=== PATIENT | male | born 1955 | race Caucasian/White ===

== ENCOUNTER 2016-09-15 20:32 | Inpatient (IN) | payer OTHER ==
[~2016-09-15] VITALS: Ht 188 cm; Wt 114.8 kg
[2016-09-15 20:37] VITALS: BP 175/100; PULSE 88; RESP 16; TEMP 98.2; O2SAT 99
[2016-09-15] MEDS ORDERED: CYCL1TAB29 PO (20:41)
[2016-09-15] MEDS ORDERED: MELO-1 PO (20:41)
[2016-09-15] MEDS ORDERED: SODIUM CHLORIDE 0.9% FLUSH 5 ML FLUSH IVF PRN ×2 (21:00→23:45)
[2016-09-15] MEDS ORDERED: MORPHINE SULFATE 4 MG/ML INJ IV ONE (21:00)
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
[2016-09-15 21:26] LABS: AUTOMATED NEUTROPHIL # 13.2 TH/MM3 (1.8-7.7); BASOPHIL # 0.1 TH/MM3 (0-0.2); BASOPHIL % 0.5 % (0.0-2.0); EOSINOPHIL # 0.2 TH/MM3 (0-0.4); HEMATOCRIT 42.6 % (39.0-51.0); LYMPH % 11.1 % (9.0-44.0); LYMPHOCYTE # 1.8 TH/MM3 (1.0-4.8); MEAN CELL VOLUME 87.3 FL (80.0-100.0); MEAN CORPUSCULAR HEMOGLOBIN 30.3 PG (27.0-34.0); MEAN CORPUSCULAR HGB CONC 34.7 % (32.0-36.0); MONO % 5.4 % (0.0-8.0); PLATELET COUNT 231 TH/MM3 (150-450); RED BLOOD COUNT 4.88 MIL/MM3 (4.50-5.90); RED CELL DISTRIBUTION WIDTH 13.4 % (11.6-17.2); WHITE BLOOD COUNT 16.1 TH/MM3 (4.0-11.0)
[2016-09-15 21:27] LABS: HEMO FLAGS AUTO DIFF
[2016-09-15 21:34] LABS: APTT (PATIENT) 25.8 SEC (24.3-30.1); INTERNATIONAL NORMALIZED RATIO 0.9 RATIO; PROTHROMBIN TIME - PATIENT 10.2 SEC (9.8-11.6)
[2016-09-15 21:38] VITALS: BP 171/87; PULSE 99; RESP 16; O2SAT 99
[2016-09-15 21:38] LABS: BICARBONATE 24.1 MEQ/L (21.0-32.0); POTASSIUM 4.3 MEQ/L (3.5-5.1)
[2016-09-15 21:45] LABS: PLATELET ESTIMATE SMEAR NORMAL (NORMAL); PLATELET MORPHOLOGY NORMAL (NORMAL); SCAN/DIFF AUTO DIFF CONFIRMED
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
[2016-09-15] MEDS ORDERED: IOHEXOL 350 MG/ML 10 ML VIAL (for RAD DIAG) IV ONE (21:55)
[2016-09-15 22:06] VITALS: BP 185/90; PULSE 105; RESP 16; O2SAT 100
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
[2016-09-15] MEDS ORDERED: ETOMIDATE 20 MG/10 ML VIAL IV PUSH ONE (22:45)
[2016-09-15] MEDS ORDERED: SODIUM CHLOR 0.9% 1000 ML INJ 1,000 ML IV ONE (22:45)
[2016-09-15 23:18] VITALS: O2SAT 99
[2016-09-15] MEDS ORDERED: SODIUM CHLOR 0.9% 1000 ML INJ 1,000 ML IV SCH (23:45)
[2016-09-15] MEDS ORDERED: ONDANSETRON HCL 4 MG/2 ML VIAL IV PRN (23:45)
--- NOTE | 2016-09-15 23:47 | PD ---
Data Data Last Documented VS Vital Signs Date Time Temp Pulse Resp B/P Pulse Ox O2 Delivery O2 Flow Rate FiO2 09/15/16 23:18 99 09/15/16 23:18 4.00 09/15/16 23:18 Nasal Cannula 09/15/16 22:06 105 16 185/90 09/15/16 20:37 98.2 Orders Basic Metabolic Panel (Bmp) (09/15/16 20:53) Complete Blood Count With Diff (09/15/16 20:53) Prothrombin Time / Inr (Pt) (09/15/16 20:53) Act Partial Throm Time (Ptt) (09/15/16 20:53) Type And Screen (09/15/16 20:53) Urinalysis - C+S If Indicated (09/15/16 20:53) Ct Brain W/O Iv Contrast(Rout) (09/15/16 20:53) Ct Cerv Spine W/O Contrast (09/15/16 20:53) Ct Abd/Pel W Iv Contrast(Rout) (09/15/16 20:53) Ct Thorax/ Chest W Iv Contrast (09/15/16 20:53) Electrocardiogram (09/15/16 20:53) Iv Access Insert/Monitor (09/15/16 20:53) Ecg Monitoring (09/15/16 20:53) Oxygen Administration (09/15/16 20:53) Remove Backboard (09/15/16 20:53) Morphine Inj (Morphine Inj) (09/15/16 21:00) Sodium Chloride 0.9% Flush (Ns Flush) (09/15/16 21:00) Tibia/Fibula (Ap/Lat) (09/15/16 ) Knee, Ltd (1 Or 2vws) (09/15/16 ) Iohexol 350 Inj (Omnipaque 350 Inj) (09/15/16 21:55) Fentanyl Inj (Fentanyl Inj) (09/15/16 22:45) Etomidate Inj (Amidate Inj) (09/15/16 22:45) Sodium Chlor 0.9% 1000 Ml Inj (Ns 1000 M (09/15/16 22:45) ^ Consent (09/15/16 22:33) Knee, Ltd (1 Or 2vws) (09/15/16 23:35) Admit Order (Ed Use Only) (09/15/16 23:36) ^ Circulation ADALGISA.Q1H (09/15/16 23:36) Vital Signs (Adult) Q4H (09/15/16 23:36) Diet Npo (09/16/16 Breakfast) Activity Bed Rest (09/15/16 23:36) ^ Saline Lock (09/15/16 23:36) Resp Oxygen Orlando C Titrat 1-4 L (09/15/16 ) ^ Notify Dr: Other (09/15/16 23:36) Ondansetron Inj (Zofran Inj) (09/15/16 23:45) Sodium Chloride 0.9% Flush (Ns Flush) (09/16/16 09:00) Sodium Chloride 0.9% Flush (Ns Flush) (09/15/16 23:45) Consult Orthopedic (09/15/16 23:36) Sodium Chlor 0.9% 1000 Ml Inj (Ns 1000 M (09/15/16 23:45) Morphine Inj (Morphine Inj) (09/15/16 23:45) Fentanyl Inj (Fentanyl Inj) (09/15/16 23:45) Labs Laboratory Tests Test 09/15/16 21:05 White Blood Count 16.1 TH/MM3 Red Blood Count 4.88 MIL/MM3 Hemoglobin 14.8 GM/DL Hematocrit 42.6 % Mean Corpuscular Volume 87.3 FL Mean Corpuscular Hemoglobin 30.3 PG Mean Corpuscular Hemoglobin 34.7 % Concent Red Cell Distribution Width 13.4 % Platelet Count 231 TH/MM3 Mean Platelet Volume 8.6 FL Neutrophils (%) (Auto) 82.0 % Lymphocytes (%) (Auto) 11.1 % Monocytes (%) (Auto) 5.4 % Eosinophils (%) (Auto) 1.0 % Basophils (%) (Auto) 0.5 % Neutrophils # (Auto) 13.2 TH/MM3 Lymphocytes # (Auto) 1.8 TH/MM3 Monocytes # (Auto) 0.9 TH/MM3 Eosinophils # (Auto) 0.2 TH/MM3 Basophils # (Auto) 0.1 TH/MM3 CBC Comment AUTO DIFF Differential Comment AUTO DIFF CONFIRMED Platelet Estimate NORMAL Platelet Morphology Comment NORMAL Red Cell Morphology Comment NORMAL Prothrombin Time 10.2 SEC Prothromb Time International 0.9 RATIO Ratio Activated Partial 25.8 SEC Thromboplast Time Sodium Level 137 MEQ/L Potassium Level 4.3 MEQ/L Chloride Level 104 MEQ/L Carbon Dioxide Level 24.1 MEQ/L Anion Gap 9 MEQ/L Blood Urea Nitrogen 15 MG/DL Creatinine 1.00 MG/DL Estimat Glomerular Filtration 76 ML/MIN Rate Random Glucose 104 MG/DL Calcium Level 8.8 MG/DL Blood Type O POSITIVE Antibody Screen NEGATIVE Blood Bank Comment [facility] Supervised Visit with KAMILA: No Narrative Course Last Impressions Head CT 09/15/162052 Signed Impressions: Service Date/Time: Thursday, September 15, 2016 21:49 - CONCLUSION: Normal examination for a patient of this age. Juan Whitney MD Chest CT 09/15/162052 Signed Impressions: Service Date/Time: Thursday, September 15, 2016 21:53 - CONCLUSION: 1. Multiple left-sided posterior and anterior lateral lower rib fractures with small left hemothorax. No pneumothorax. 2. Mild paraseptal and centrilobular emphysema. No mediastinal hematoma or evidence for traumatic aortic injury. 3. Mild to moderate coronary calcifications. Juan Whitney MD Cervical Spine CT 09/15/162052 Signed Impressions: Service Date/Time: Thursday, September 15, 2016 21:49 - CONCLUSION: 1. Mild degenerative disc disease and facet arthropathy. No acute bony abnormalities. Juan Whitney MD Abdomen/Pelvis CT 09/15/162052 Signed Impressions: Service Date/Time: Thursday, September 15, 2016 21:53 - CONCLUSION: 1. Multiple left lower rib fractures both posteriorly and anterolaterally with a small left hemothorax. There is no pneumothorax. No solid visceral injuries identified within the abdomen or pelvis. No free fluid or free air. Juan Whitney MD Tibia/Fibula X-Ray 09/15/16 0000 Signed Impressions: Service Date/Time: Thursday, September 15, 2016 21:31 - CONCLUSION: 1. Severely comminuted proximal tibial fracture. Fibular shaft fracture also present. Juan Whitney MD Knee X-Ray 09/15/16 0000 Signed Impressions: Service Date/Time: Thursday, September 15, 2016 21:27 - CONCLUSION: 1. Severely comminuted and displaced proximal tibial fracture. Distal femur appears intact. Proximal fibular shaft fracture as well. Juan Whitney MD CBC & BMP Diagram 09/15/16 21:05 Procedures Procedure Narrative After the risks and benefits were discussed the following procedure was performed: MODERATE SEDATION: The patient was placed on a quality assurance monitor and pulse oximetry. An ambu bag and suction was immediately available at bedside. The patient was monitored by the nurse and respiratory therapy. Oxygen saturation, heart rate and blood pressure were monitored. Procedural sedation was acheived using 100 g of fentanyl and 10 mg of etomidate. The patient was observed until awake and alert. Procedural Sedation time in attendance was 15 minutes. While the patient was sedated, the fracture was reduced by myself and the orthodontist small business owner. The leg was then splinted. He had good pedal pulses following the procedure. Post reduction x-ray is pending. Physician Communication Physician Communication Case discussed with Dr. Zimmerman who asked that I try to reduce the fracture. Case was then discussed with Dr. Beach who will admit the patient. Diagnosis Primary Impression: Closed left tibial fracture Qualified Code: S82.102A - Closed fracture of proximal end of left tibia, unspecified fracture morphology, initial encounter Additional Impressions: Left rib fracture Qualified Code: S22.42XA - Closed fracture of multiple ribs of left side, initial encounter Hemothorax on left Admitting Information Admitting Physician Requests: Admit Condition: Stable Mira Khan MD Sep 15, 2016 23:47
[2016-09-16] VITALS (8 sets, daily range): BP systolic 128–168; BP diastolic 71–96; PULSE 87–94; RESP 17–18; TEMP 95.1–98.4; O2SAT 91–97
--- NOTE | 2016-09-16 00:01 | RADRPT ---
EXAM DATE/TIME: 09/15/2016 23:31 [facility] COMPARISON: KNEE LEFT LTD (1 OR 2VWS), September 15, 2016, 21:27. INDICATIONS : Post reduction left knee. MEDICAL HISTORY : None. SURGICAL HISTORY : None. ENCOUNTER: Subsequent ACUITY: 1 day PAIN SCORE: 6/10 LOCATION: Left knee. FINDINGS: The alignment is anatomic. Anterior fracture of the tibial plateau is present with intra-articular di stention. Transverse fracture the proximal fibula is present. A lipohemarthrosis is present. CONCLUSION: 1. Restorationist of anatomic alignment. London Dixon MD on September 15, 2016 at 23:59 Board Certified Radiologist. This report was verified electronically.
[2016-09-16] MEDS: MORPHINE SULFATE 4 MG/ML INJ IV PUSH PRN ×3 (01:28→08:10)
[2016-09-16 05:04] LABS: BLOOD, URINE NEG (NEG); COMMENT (UR) CULT NOT INDICATED; CULTURE IF INDICATED CULT NOT INDICATED; GLUCOSE,URINE NEG (NEG); KETONE, URINE NEG (NEG); MUCUS URINE FEW /lpf (OCC); NITRITE,URINE NEG (NEG); PH, URINE 5.5 (5.0-8.5); URINE COLOR LIGHT-YELLOW (YELLW/STRAW)
[2016-09-16] MEDS ORDERED: SODIUM CHLORIDE 0.9% FLUSH 5 ML FLUSH IVF PRN ×2 (07:15→10:30)
[2016-09-16] MEDS ORDERED: ENALAPRILAT 1.25 MG/ML VIAL IV PRN (07:15)
[2016-09-16] MEDS ORDERED: ACETAMINOPHEN 325 MG TAB PO PRN (07:15)
[2016-09-16] MEDS ORDERED: ONDANSETRON HCL 4 MG/2 ML VIAL IV PRN (07:15)
[2016-09-16] MEDS: SODIUM CHLORIDE 0.9% FLUSH 5 ML FLUSH IVF SCH ×3 (08:12→19:24)
[2016-09-16] MEDS: MELOXICAM 15 MG TAB PO SCH (08:12)
[2016-09-16] MEDS: CYCLOBENZAPRINE HCL 10 MG TAB PO SCH ×3 (08:12→17:00)
[2016-09-16] MEDS: SODIUM CHLOR 0.9% 1000 ML INJ 1,000 ML IV SCH ×2 (08:18→11:23)
[2016-09-16] MEDS ORDERED: DOCUSATE SODIUM 100 MG CAP PO SCH (09:00)
[2016-09-16] MEDS ORDERED: VANCOMYCIN HCL 1000 MG VIAL ONE (09:26)
[2016-09-16] MEDS ORDERED: ceFAZolin 2 GM PREMIX 50 ML ONE (09:26)
[2016-09-16] MEDS ORDERED: DEXT 5%-NACL 0.45% 1000 ML INJ 1,000 ML IV SCH (10:19)
[2016-09-16] MEDS ORDERED: MIDAZOLAM HCL 2 MG/2 ML VIAL ONE (10:22)
[2016-09-16] MEDS ORDERED: fentaNYL CITRATE 250 MCG/5 ML AMP ONE (10:23)
[2016-09-16] MEDS ORDERED: *morphine SULFATE 8 MG/ML PERIprocedure ONLY ONE ×2 (10:26→10:33)
[2016-09-16] MEDS ORDERED: MISCELLANEOUS PHARMACY INFORMATION XX ONE (10:30)
[2016-09-16] MEDS ORDERED: ONDANSETRON HCL 4 MG/2 ML VIAL IVP PRN (10:30)
[2016-09-16] MEDS ORDERED: MISCELLANEOUS NURSING INFORMATION XX PRN (10:30)
[2016-09-16] MEDS ORDERED: diphenhydrAMINE HCL 25 MG CAP PO PRN (10:30)
[2016-09-16] MEDS ORDERED: NALOXONE HCL 0.4 MG/ML AMP IV PRN (10:30)
[2016-09-16] MEDS ORDERED: MORPHINE SULFATE 4 MG/ML INJ IV PUSH PRN (10:30)
[2016-09-16] MEDS ORDERED: MAGNESIUM HYDROXIDE SUSP 30 ML CUP PO PRN (10:30)
[2016-09-16] MEDS ORDERED: Post-op Orders (for Pharmacy) MISC XX ONE (10:30)
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
--- NOTE | 2016-09-16 10:39 | RADRPT ---
EXAM DATE/TIME: 09/16/2016 10:01 [facility] COMPARISON: KNEE LEFT LTD (1 OR 2VWS), September 15, 2016, 23:31. INDICATIONS : Surgical repair. MEDICAL HISTORY : None. SURGICAL HISTORY : None. ENCOUNTER: Initial ACUITY: 1 day PAIN SCORE: Non-responsive. LOCATION: Left Proximal tibia. FINDINGS: Single intraoperative spot image of the left knee indicating comminuted fracture of the proximal tibi a. CONCLUSION: Comminuted proximal tibia fracture. Nikita Baca MD on September 16, 2016 at 10:37 Board Certified Radiologist. This report was verified electronically.
[2016-09-16] MEDS ORDERED: *MEPERIDINE 25 MG INJ VIAL PERIprocedural Use ONLY ONE (10:40)
[2016-09-16] MEDS ORDERED: DO NOT ADM ANY ANTICOAGULANT DRUGS XX PRN (10:45)
[2016-09-16] MEDS: MORPHINE SULFATE 30 MG/30 ML PCA IV SCH ×2 (10:58→19:30)
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
[2016-09-16] MEDS ORDERED: ePHEDrine/NS 25 MG/5 ML SYR IV ONE (12:00)
[2016-09-16] MEDS ORDERED: PHENYLEPH/NS 1000 MCG/10 ML SYR IV ONE (12:00)
[2016-09-16] MEDS ORDERED: PROPOFOL 200 MG/20 ML AMP IV ONE (12:00)
[2016-09-16] MEDS ORDERED: ONDANSETRON HCL 4 MG/2 ML VIAL IV PUSH ONE (12:00)
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
[2016-09-16] MEDS ORDERED: RESP: ALBUTEROL 2.5 MG/IPRATROPIUM 0.5 MG NEB (PRN) NEB (13:15)
[2016-09-16] MEDS ORDERED: CALCIUM CARBONATE 500 MG CHEWABLE TAB CHEW PRN (13:30)
[2016-09-16] MEDS: PCA - TOTAL MG MORPHINE DELIVERED PER SHIFT SCH ×2 (13:45→19:24)
[2016-09-16] MEDS: PANTOPRAZOLE SOD 40 MG DELAYED RELEASE TAB PO SCH (14:28)
--- NOTE | 2016-09-16 15:10 | EKG ---
Date Performed: 09/15/2016 Time Performed: 21:44:23 PTAGE: 61 years EKG: SINUS TACHYCARDIA NONSPECIFIC ST & T-WAVE ABNORMALITY ABNORMAL ECG NO PREVIOUS TRACING DOCTOR: Luis Alberto Enriquez Interpretating Date/Time 09/16/2016 15:09:42
[2016-09-16] MEDS: DOCUSATE SODIUM 50 MG/SENNA 8.6 MG TAB PO SCH (19:23)
[2016-09-16] MEDS: MAGNESIUM HYDROXIDE SUSP 30 ML CUP PO SCH (19:24)
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
[2016-09-17] VITALS (8 sets, daily range): BP systolic 106–152; BP diastolic 68–85; PULSE 96–105; RESP 16–18; TEMP 96.2–98.2; O2SAT 91–94
[2016-09-17] MEDS ORDERED: LACTATED RINGER'S 1000 ML IV SCH (01:00)
[2016-09-17] MEDS ORDERED: SODIUM CHLORID 0.9% 500 ML IV SCH (01:00)
[2016-09-17] MEDS ORDERED: INSULIN HUMAN REGULAR 1,000 UNITS/10 ML VIAL SQ PRN (04:45)
[2016-09-17] MEDS ORDERED: METOPROLOL TARTRATE 25 MG TAB PO PRN (04:45)
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
[2016-09-17 07:15] LABS: AUTOMATED NEUTROPHIL # 8.3 TH/MM3 (1.8-7.7); BASOPHIL % 0.2 % (0.0-2.0); EOSINOPHIL # 0.1 TH/MM3 (0-0.4); EOSINOPHIL % 0.7 % (0.0-4.0); HEMATOCRIT 34.6 % (39.0-51.0); HEMO FLAGS DIFF FINAL; LYMPH % 15.2 % (9.0-44.0); LYMPHOCYTE # 1.7 TH/MM3 (1.0-4.8); MEAN CELL VOLUME 88.3 FL (80.0-100.0); MEAN CORPUSCULAR HEMOGLOBIN 29.8 PG (27.0-34.0); MEAN CORPUSCULAR HGB CONC 33.7 % (32.0-36.0); MONO % 9.5 % (0.0-8.0); NEUT % 74.4 % (16.0-70.0); PLATELET COUNT 189 TH/MM3 (150-450); RED BLOOD COUNT 3.92 MIL/MM3 (4.50-5.90); RED CELL DISTRIBUTION WIDTH 13.4 % (11.6-17.2); WHITE BLOOD COUNT 11.1 TH/MM3 (4.0-11.0)
[2016-09-17 07:43] LABS: ALT (GPT) 32 U/L (12-78); ANION GAP 6 MEQ/L (5-15); AST (GOT) 27 U/L (15-37); BICARBONATE 30.5 MEQ/L (21.0-32.0); BLOOD UREA NITROGEN 11 MG/DL (7-18); CHLORIDE 101 MEQ/L (98-107); GLOMERULAR FILTRATION RATE 98 ML/MIN (>89); POTASSIUM 4.4 MEQ/L (3.5-5.1); SODIUM (NA) 137 MEQ/L (136-145)
[2016-09-17 07:45] LABS: ALKALINE PHOSPHATASE 59 U/L (45-117); TOTAL BILIRUBIN ADULT 0.3 MG/DL (0.2-1.0)
[2016-09-17] MEDS: MELOXICAM 15 MG TAB PO SCH (08:30)
[2016-09-17] MEDS: MULTIVITAMINS/MINERALS THERAPEUTIC TAB PO SCH (08:30)
[2016-09-17] MEDS: CYCLOBENZAPRINE HCL 10 MG TAB PO SCH ×3 (08:30→17:16)
[2016-09-17] MEDS: PANTOPRAZOLE SOD 40 MG DELAYED RELEASE TAB PO SCH (08:30)
[2016-09-17] MEDS: ENOXAPARIN SODIUM 40 MG/0.4 ML SYRINGE SQ SCH (08:30)
[2016-09-17] MEDS: SODIUM CHLORIDE 0.9% FLUSH 5 ML FLUSH IVF SCH ×3 (08:30→20:06)
[2016-09-17] MEDS ORDERED: LACTULOSE SYRUP 20 GM/30 ML CUP PO ONE (08:30)
[2016-09-17] MEDS: DOCUSATE SODIUM 50 MG/SENNA 8.6 MG TAB PO SCH ×2 (08:30→20:04)
[2016-09-17] MEDS: KETOROLAC TROMETHAMINE 60 MG/2 ML (IM) VIAL IM SCH ×3 (08:35→22:00)
[2016-09-17] MEDS: SODIUM CHLOR 0.9% 1000 ML INJ 1,000 ML IV SCH (08:36)
--- NOTE | 2016-09-17 09:16 | RADRPT ---
EXAM DATE/TIME: 09/17/2016 08:58 [facility] COMPARISON: CT THORAX W CONTRAST, September 15, 2016, 21:53. INDICATIONS : Follow-up hemothorax. MEDICAL HISTORY : Rib fractures. SURGICAL HISTORY : Tonsillectomy. ENCOUNTER: Initial ACUITY: 3 days PAIN SCORE: 10/10 LOCATION: Bilateral chest FINDINGS: There is persistent left basilar density retrocardiac which may represent in part consolidation and p osterior lateral associated pleural effusion. There is no definite evidence of pneumothorax. CONCLUSION: No evidence of pneumothorax. Left basilar density in part posterior fusion pneumothorax and possibly some mild lower lobe posterior basilar consolidation Brandon Fermin MD on September 17, 2016 at 9:12 Board Certified Radiologist. This report was verified electronically.
--- NOTE | 2016-09-17 09:41 | RADRPT ---
EXAM DATE/TIME: 09/17/2016 08:52 [facility] COMPARISON: No previous studies available for comparison. INDICATIONS : Evaluate fracture RADIATION DOSE: 7.31 CTDIvol (mGy) MEDICAL HISTORY: None SURGICAL HISTORY: External fixator left tibia ENCOUNTER: Initial ACUITY: 3 days PAIN SCALE: 6/10 LOCATION: Left tibia TECHNIQUE: Volumetric scanning of the knee was performed. Using automated exposure control and adjustment of th e mA and/or kV according to patient size, radiation dose was kept as low as reasonably achievable to obtain optimal diagnostic quality images. FINDINGS: There is a severely comminuted fracture of the lateral plateau that involves both the medial and late ral tibial spine. There is also a horizontal component across the proximal tibial metaphysis. The fibular head is intact; however, there is a fracture of the proximal fibular metaphysis. Femoral condyle is intact. Large joint effusion is evident. Patella is intact. CONCLUSION: 1. Severely comminuted fracture of the tibial plateau involving predominantly the lateral plateau. 2. 3D reconstructions are pending. Kleber Alfaro MD FACR on September 17, 2016 at 9:14 Board Certified Radiologist. This report was verified electronically.
[2016-09-17] MEDS: LIDOCAINE HCL 5% PATCH TD SCH (11:18)
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
--- NOTE | 2016-09-17 13:19 | RADRPT ---
EXAM DATE/TIME: 09/17/2016 08:52 [facility] COMPARISON: No previous studies available for comparison. INDICATIONS : Evaluate fracture MEDICAL HISTORY: None SURGICAL HISTORY: Left tibia ENCOUNTER: Initial ACUITY: 3 days PAIN SCALE: 1/10 LOCATION: Left tibia FINDINGS/ CONCLUSION: 3D reconstructions were obtained to further evaluate the severely comminuted fracture of the proximal tibia and lateral plateau. Kleber Alfaro MD FACR on September 17, 2016 at 12:46 Board Certified Radiologist. This report was verified electronically.
[2016-09-17] MEDS: ACETAMINOPHEN/HYDROcodone 325 MG/7.5 MG TAB PO PRN (17:14)
[2016-09-17] MEDS: MAGNESIUM HYDROXIDE SUSP 30 ML CUP PO SCH (20:04)
[2016-09-17] MEDS ORDERED: REMOVE OLD PATCH T-DERMAL SCH (21:00)
[2016-09-18] MEDS: ACETAMINOPHEN/HYDROcodone 325 MG/7.5 MG TAB PO PRN ×3 (06:00→19:05)
--- NOTE | 2016-09-18 06:21 | PD.ORT.PN ---
Subjective Subjective Remarks Patient has comminuted left tibial plateau fracture. An external fixation. Complains of left sided rib pain Objective Vitals Vital Signs Date Time Temp Pulse Resp B/P Pulse Ox O2 Delivery O2 Flow Rate FiO2 09/17/16 23:30 98.2 101 18 137/73 92 09/17/16 20:15 96.6 99 18 126/77 94 09/17/16 19:02 Nasal Cannula 2.00 09/17/16 17:30 97.4 101 16 152/76 91 09/17/16 13:33 94 Nasal Cannula 2.00 09/17/16 12:05 97.5 96 16 106/68 91 09/17/16 08:40 96.7 99 16 140/77 91 09/17/16 07:11 Nasal Cannula 2.00 I/O 09/17/16 09/17/16 09/17/16 09/18/16 09/18/16 09/18/16 07:00 15:00 23:00 07:00 15:00 23:00 Intake Total 480 ml 1740 ml 1356 ml 666 ml Output Total 0 ml 1500 ml 800 ml 0 ml Balance 480 ml 240 ml 556 ml 666 ml Intake Oral 480 ml 960 ml 720 ml 240 ml IV Total 780 ml 636 ml 426 ml Output Urine Total 0 ml 1500 ml 800 ml 0 ml Bladder Scan Volume Amount 986 ml # Bowel Movements 0 0 0 Result Diagram: 09/17/16 0617 09/17/16 0617 Imaging Last 24 hours Impressions Chest X-Ray 09/17/16 0800 Signed Impressions: Service Date/Time: Saturday, September 17, 2016 08:58 - CONCLUSION: No evidence of pneumothorax. Left basilar density in part posterior fusion pneumothorax and possibly some mild lower lobe posterior basilar consolidation Brandon Fermin MD Objective Remarks LLE: +knee spanning exfix. pin sites clean. moderate bloody drainage. NVI distally with good dorsiflexion. Positive swelling. Compartments soft Assessment & Plan Assessment and Plan 1) Left Tibial Plateau Fx s/p exfix -NWB -elevate -ice -Toradol 30mg Q8hrs x 6 doses -CT scan left knee today -will evaluate day to day for swelling to decrease Plan on surgery when swelling is improved Abdiaziz Hager MD Sep 18, 2016 06:21
[2016-09-18 08:02] VITALS: BP 147/87; PULSE 90; RESP 16; TEMP 97.1; O2SAT 94
[2016-09-18] MEDS: LIDOCAINE HCL 5% PATCH TD SCH (09:00)
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
[2016-09-18] MEDS ORDERED: TAMSULOSIN HCL 0.4 MG CAP PO ONE (10:00)
[2016-09-18 10:02] VITALS: BP 128/59; PULSE 90; RESP 16; TEMP 95.4; O2SAT 94
[2016-09-18] MEDS: ENOXAPARIN SODIUM 40 MG/0.4 ML SYRINGE SQ SCH (10:10)
[2016-09-18] MEDS: DOCUSATE SODIUM 50 MG/SENNA 8.6 MG TAB PO SCH (10:11)
[2016-09-18] MEDS: CYCLOBENZAPRINE HCL 10 MG TAB PO SCH ×3 (10:11→18:09)
[2016-09-18] MEDS: MULTIVITAMINS/MINERALS THERAPEUTIC TAB PO SCH (10:11)
[2016-09-18] MEDS: PANTOPRAZOLE SOD 40 MG DELAYED RELEASE TAB PO SCH (10:12)
[2016-09-18] MEDS: SODIUM CHLORIDE 0.9% FLUSH 5 ML FLUSH IVF SCH ×2 (10:12→21:33)
[2016-09-18] MEDS: MORPHINE SULFATE 4 MG/ML INJ IV PUSH PRN (10:13)
[2016-09-18] MEDS ORDERED: MAGNESIUM CITRATE SOLN 300 ML BTL PO ONE (11:15)
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
[2016-09-18 16:19] VITALS: BP 137/74; PULSE 91; RESP 17; TEMP 97.1; O2SAT 94
[2016-09-18] MEDS: KETOROLAC TROMETHAMINE 30 MG/ML (IVP) VIAL IV PUSH SCH ×2 (17:58→21:35)
[2016-09-18 21:12] VITALS: BP 137/71; PULSE 100; RESP 16; TEMP 97.2; O2SAT 93
[2016-09-18] MEDS: FAMOTIDINE 20 MG TAB PO SCH (21:34)
[2016-09-19] VITALS (7 sets, daily range): BP systolic 142–163; BP diastolic 73–83; PULSE 92–98; RESP 12–18; TEMP 97.1–97.3; O2SAT 90–98
[2016-09-19] MEDS: MAGNESIUM HYDROXIDE SUSP 30 ML CUP PO SCH ×2 (00:22→21:00)
[2016-09-19] MEDS: DOCUSATE SODIUM 50 MG/SENNA 8.6 MG TAB PO SCH ×3 (00:22→21:00)
[2016-09-19] MEDS: ACETAMINOPHEN/HYDROcodone 325 MG/7.5 MG TAB PO PRN ×5 (00:23→17:46)
[2016-09-19] MEDS: KETOROLAC TROMETHAMINE 30 MG/ML (IVP) VIAL IV PUSH SCH ×2 (05:29→12:59)
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
[2016-09-19] MEDS ORDERED: KETOROLAC TROMETHAMINE 60 MG/2 ML (IM) VIAL IM SCH (06:30)
--- NOTE | 2016-09-19 07:39 | RADRPT ---
EXAM DATE/TIME: 09/19/2016 06:37 [place] COMPARISON: No previous studies available for comparison. INDICATIONS : Hemothorax. MEDICAL HISTORY : Rib fractures. SURGICAL HISTORY : Tonsillectomy. ENCOUNTER: Subsequent ACUITY: 4 - 6 days PAIN SCORE: 5/10 LOCATION: Left chest FINDINGS: A single view of the chest demonstrates small left pleural effusion. Left basilar density. Minimal ri ght upper lobe density. Osseous structures are intact. CONCLUSION: 1. Small left pleural effusion left basilar density. 2. Interval development of density in the right upper lobe Kam Helton MD on September 19, 2016 at 7:37 Board Certified Radiologist. This report was verified electronically.
[2016-09-19] MEDS: SODIUM CHLORIDE 0.9% FLUSH 5 ML FLUSH IVF SCH ×2 (09:00→10:33)
[2016-09-19] MEDS: MORPHINE SULFATE 4 MG/ML INJ IV PUSH PRN ×2 (10:28→20:40)
[2016-09-19] MEDS: FAMOTIDINE 20 MG TAB PO SCH ×2 (10:31→21:00)
[2016-09-19] MEDS: CYCLOBENZAPRINE HCL 10 MG TAB PO SCH ×3 (10:31→17:46)
[2016-09-19] MEDS: ENOXAPARIN SODIUM 40 MG/0.4 ML SYRINGE SQ SCH (10:31)
[2016-09-19] MEDS: MULTIVITAMINS/MINERALS THERAPEUTIC TAB PO SCH (10:31)
[2016-09-19] MEDS: TAMSULOSIN HCL 0.4 MG CAP PO SCH (10:31)
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
[2016-09-20 00:40] VITALS: BP 119/78; PULSE 100; RESP 17; TEMP 96.4; O2SAT 96
[2016-09-20] MEDS: ACETAMINOPHEN/HYDROcodone 325 MG/7.5 MG TAB PO PRN ×4 (01:32→21:33)
[2016-09-20] MEDS: SODIUM CHLORIDE 0.9% FLUSH 5 ML FLUSH IVF SCH ×2 (01:33→21:30)
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
[2016-09-20 08:00] VITALS: BP 138/82; PULSE 113; RESP 18; TEMP 95.7; O2SAT 92
[2016-09-20] MEDS: MULTIVITAMINS/MINERALS THERAPEUTIC TAB PO SCH (08:29)
[2016-09-20] MEDS: FAMOTIDINE 20 MG TAB PO SCH ×2 (08:30→21:33)
[2016-09-20] MEDS: TAMSULOSIN HCL 0.4 MG CAP PO SCH (08:30)
[2016-09-20] MEDS: CYCLOBENZAPRINE HCL 10 MG TAB PO SCH ×3 (08:32→18:09)
[2016-09-20] MEDS: MELOXICAM 15 MG TAB PO SCH (08:37)
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
[2016-09-20 12:00] VITALS: BP 157/96; PULSE 105; RESP 16; TEMP 95.7; O2SAT 96
[2016-09-20 16:00] VITALS: BP 137/81; PULSE 107; RESP 20; TEMP 96.5; O2SAT 93
[2016-09-20 20:35] VITALS: BP 162/76; PULSE 114; RESP 17; TEMP 96.1; O2SAT 93
[2016-09-20] MEDS: MAGNESIUM HYDROXIDE SUSP 30 ML CUP PO SCH (21:00)
[2016-09-20] MEDS: DOCUSATE SODIUM 50 MG/SENNA 8.6 MG TAB PO SCH (21:00)
[2016-09-21] VITALS (8 sets, daily range): BP systolic 117–154; BP diastolic 67–84; PULSE 92–109; RESP 16–20; TEMP 96–98.1; O2SAT 93–99
[2016-09-21] MEDS: ACETAMINOPHEN/HYDROcodone 325 MG/7.5 MG TAB PO PRN ×4 (03:50→23:32)
--- NOTE | 2016-09-21 06:43 | PD.ORT.PN ---
Subjective Subjective Remarks Patient has comminuted left tibial plateau fracture. In external fixation. He is keeping left leg elevated and iced Objective Vitals Vital Signs Date Time Temp Pulse Resp B/P Pulse Ox O2 Delivery O2 Flow Rate FiO2 09/21/16 03:50 96.4 106 17 130/83 96 09/21/16 00:00 98.1 109 18 117/76 94 09/20/16 20:35 96.1 114 17 162/76 93 09/20/16 20:00 93 Nasal Cannula 2.00 09/20/16 16:00 96.5 107 20 137/81 93 09/20/16 12:00 95.7 105 16 157/96 96 09/20/16 08:00 95.7 113 18 138/82 92 I/O 09/20/16 09/20/16 09/20/16 09/21/16 09/21/16 09/21/16 07:00 15:00 23:00 07:00 15:00 23:00 Intake Total 240 ml 240 ml 480 ml Output Total 650 ml 2000 ml 1350 ml Balance -410 ml -1760 ml -870 ml Intake Oral 240 ml 240 ml 480 ml Output Urine Total 650 ml 2000 ml 1350 ml # Bowel Movements 0 0 0 Result Diagram: 09/17/1661609/17/16616 Imaging Last 24 hours Impressions Chest X-Ray 09/17/16 0800 Signed Impressions: Service Date/Time: Saturday, September 17, 2016 08:58 - CONCLUSION: No evidence of pneumothorax. Left basilar density in part posterior fusion pneumothorax and possibly some mild lower lobe posterior basilar consolidation Brandon Fermin MD Objective Remarks LLE: +knee spanning exfix. pin sites clean. Minimal drainage. NVI distally with good dorsiflexion. Positive 2+ swelling. Compartments soft Assessment & Plan Assessment and Plan 1) Left Tibial Plateau Fx s/p exfix -NWB -elevate -ice -will continue to ice and elevate -npo after MN on Saturday -hold lovenox after Saturday dose -will eval for surgery for Saturday -Will switch mattresses to help prevent decubitus ulcers. Abdiaziz Hager MD Sep 21, 2016 06:43
[2016-09-21] MEDS: FAMOTIDINE 20 MG TAB PO SCH ×2 (08:31→20:25)
[2016-09-21] MEDS: TAMSULOSIN HCL 0.4 MG CAP PO SCH (08:31)
[2016-09-21] MEDS: CYCLOBENZAPRINE HCL 10 MG TAB PO SCH ×3 (08:31→17:25)
[2016-09-21] MEDS: MELOXICAM 15 MG TAB PO SCH (08:31)
[2016-09-21] MEDS: MULTIVITAMINS/MINERALS THERAPEUTIC TAB PO SCH (08:31)
[2016-09-21] MEDS: SODIUM CHLORIDE 0.9% FLUSH 5 ML FLUSH IVF SCH ×2 (08:32→20:25)
[2016-09-21] MEDS: ENOXAPARIN SODIUM 40 MG/0.4 ML SYRINGE SQ SCH (08:32)
[2016-09-21] MEDS: DOCUSATE SODIUM 50 MG/SENNA 8.6 MG TAB PO SCH ×2 (08:33→20:26)
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
[2016-09-21] MEDS: MAGNESIUM HYDROXIDE SUSP 30 ML CUP PO SCH (20:26)
[2016-09-22] MEDS: ACETAMINOPHEN/HYDROcodone 325 MG/7.5 MG TAB PO PRN ×3 (05:15→15:38)
[2016-09-22 06:05] LABS: ALT (GPT) 46 U/L (12-78); ANION GAP 9 MEQ/L (5-15); AST (GOT) 36 U/L (15-37); BICARBONATE 31.2 MEQ/L (21.0-32.0); BLOOD UREA NITROGEN 12 MG/DL (7-18); CHLORIDE 96 MEQ/L (98-107); GLOMERULAR FILTRATION RATE 112 ML/MIN (>89); POTASSIUM 4.6 MEQ/L (3.5-5.1); SODIUM (NA) 136 MEQ/L (136-145)
[2016-09-22 06:07] LABS: ALKALINE PHOSPHATASE 94 U/L (45-117); TOTAL BILIRUBIN ADULT 0.3 MG/DL (0.2-1.0)
[2016-09-22 06:11] LABS: BASOPHIL % 0.2 % (0.0-2.0); EOSINOPHIL # 0.4 TH/MM3 (0-0.4); EOSINOPHIL % 3.9 % (0.0-4.0); HEMATOCRIT 31.8 % (39.0-51.0); HEMO FLAGS DIFF FINAL; LYMPH % 10.1 % (9.0-44.0); MEAN CELL VOLUME 86.8 FL (80.0-100.0); MEAN CORPUSCULAR HEMOGLOBIN 29.5 PG (27.0-34.0); MONO % 12.2 % (0.0-8.0); NEUT % 73.6 % (16.0-70.0); PLATELET COUNT 261 TH/MM3 (150-450); RED BLOOD COUNT 3.66 MIL/MM3 (4.50-5.90); RED CELL DISTRIBUTION WIDTH 13.1 % (11.6-17.2); WHITE BLOOD COUNT 9.5 TH/MM3 (4.0-11.0)
[2016-09-22 08:00] VITALS: BP 120/58; PULSE 95; RESP 18; TEMP 96.3; O2SAT 97
[2016-09-22] MEDS: MULTIVITAMINS/MINERALS THERAPEUTIC TAB PO SCH (09:04)
[2016-09-22] MEDS: FAMOTIDINE 20 MG TAB PO SCH ×2 (09:04→20:51)
[2016-09-22] MEDS: MELOXICAM 15 MG TAB PO SCH (09:04)
[2016-09-22] MEDS: SODIUM CHLORIDE 0.9% FLUSH 5 ML FLUSH IVF SCH ×2 (09:04→20:51)
[2016-09-22] MEDS: ENOXAPARIN SODIUM 40 MG/0.4 ML SYRINGE SQ SCH (09:04)
[2016-09-22] MEDS: CYCLOBENZAPRINE HCL 10 MG TAB PO SCH ×3 (09:04→17:19)
[2016-09-22] MEDS: DOCUSATE SODIUM 50 MG/SENNA 8.6 MG TAB PO SCH ×2 (09:04→20:51)
[2016-09-22] MEDS: TAMSULOSIN HCL 0.4 MG CAP PO SCH (09:04)
[2016-09-22 09:59] VITALS: O2SAT 98
[2016-09-22 12:00] VITALS: BP 142/68; PULSE 98; RESP 18; TEMP 95.8; O2SAT 98
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
[2016-09-22 16:00] VITALS: BP 140/68; PULSE 99; RESP 18; TEMP 96.2; O2SAT 96
[2016-09-22 19:55] VITALS: BP 135/66; PULSE 101; RESP 16; TEMP 97.8; O2SAT 97
[2016-09-22] MEDS: MAGNESIUM HYDROXIDE SUSP 30 ML CUP PO SCH (20:49)
[2016-09-22 21:36] VITALS: O2SAT 97
[2016-09-23] VITALS: BP 150/66; PULSE 100; RESP 16; TEMP 96.7; O2SAT 96
[2016-09-23] MEDS: ACETAMINOPHEN/HYDROcodone 325 MG/7.5 MG TAB PO PRN ×4 (00:13→23:59)
--- NOTE | 2016-09-23 06:09 | RADRPT ---
EXAM DATE/TIME: 09/23/2016 05:36 [facility] COMPARISON: CHEST SINGLE AP, September 19, 2016, 6:37. INDICATIONS : Hemothorax MEDICAL HISTORY : Rib fractures. SURGICAL HISTORY : Tonsillectomy. ENCOUNTER: Subsequent ACUITY: 2 weeks PAIN SCORE: 6/10 LOCATION: Bilateral chest FINDINGS: Mild cardiomegaly. Small left effusion. Mild atelectasis right lung base. Consolidation left lower lo be. CONCLUSION: Small left effusion and right basilar atelectasis. Left lower lobe consolidation. Lul Melendez MD on September 23, 2016 at 6:08 Board Certified Radiologist. This report was verified electronically.
[2016-09-23 08:00] VITALS: BP 137/78; PULSE 90; RESP 19; TEMP 96.3; O2SAT 93
[2016-09-23 11:45] VITALS: O2SAT 96
[2016-09-23] MEDS: CYCLOBENZAPRINE HCL 10 MG TAB PO SCH ×3 (11:52→17:41)
[2016-09-23] MEDS: TAMSULOSIN HCL 0.4 MG CAP PO SCH (11:52)
[2016-09-23] MEDS: DOCUSATE SODIUM 50 MG/SENNA 8.6 MG TAB PO SCH ×2 (11:52→21:00)
[2016-09-23] MEDS: MULTIVITAMINS/MINERALS THERAPEUTIC TAB PO SCH (11:52)
[2016-09-23] MEDS: MELOXICAM 15 MG TAB PO SCH (11:52)
[2016-09-23] MEDS: FAMOTIDINE 20 MG TAB PO SCH ×2 (11:52→22:10)
[2016-09-23] MEDS: SODIUM CHLORIDE 0.9% FLUSH 5 ML FLUSH IVF SCH ×2 (11:53→22:11)
[2016-09-23 12:00] VITALS: BP 138/77; PULSE 95; RESP 18; TEMP 96; O2SAT 95
[2016-09-23 16:00] VITALS: BP 137/77; PULSE 111; RESP 18; TEMP 96.1; O2SAT 92
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
[2016-09-23 20:00] VITALS: BP 152/81; PULSE 104; RESP 16; TEMP 96.9; O2SAT 94
[2016-09-23] MEDS: MAGNESIUM HYDROXIDE SUSP 30 ML CUP PO SCH (21:00)
[2016-09-24] VITALS: BP 134/66; PULSE 105; RESP 17; TEMP 96.4; O2SAT 94
[2016-09-24 04:00] VITALS: BP 137/62; PULSE 103; RESP 16; TEMP 97.4; O2SAT 93
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
[2016-09-24 08:00] VITALS: BP 132/63; PULSE 100; RESP 18; TEMP 96.1; O2SAT 93
[2016-09-24] MEDS: DOCUSATE SODIUM 50 MG/SENNA 8.6 MG TAB PO SCH ×2 (09:00→21:44)
[2016-09-24] MEDS: MULTIVITAMINS/MINERALS THERAPEUTIC TAB PO SCH (09:00)
[2016-09-24] MEDS: SODIUM CHLORIDE 0.9% FLUSH 5 ML FLUSH IVF SCH ×2 (09:00→21:44)
[2016-09-24] MEDS: FAMOTIDINE 20 MG TAB PO SCH ×2 (09:00→21:44)
[2016-09-24] MEDS: CYCLOBENZAPRINE HCL 10 MG TAB PO SCH ×3 (09:00→17:42)
[2016-09-24] MEDS: MELOXICAM 15 MG TAB PO SCH (09:00)
[2016-09-24] MEDS: TAMSULOSIN HCL 0.4 MG CAP PO SCH (09:00)
[2016-09-24] MEDS ORDERED: SODIUM CHLOR 0.9% 250 ML INJ 250 ML ONE (09:56)
[2016-09-24] MEDS ORDERED: ceFAZolin 2 GM PREMIX 50 ML ONE (09:56)
[2016-09-24] MEDS ORDERED: VANCOMYCIN HCL 1000 MG VIAL ONE (09:56)
[2016-09-24] MEDS ORDERED: GENTAMICIN SULFATE 80 MG/2 ML VIAL ONE (09:56)
[2016-09-24] MEDS ORDERED: DEXAMETHASONE SOD PHOS 4 MG/ML VIAL ONE (10:10)
[2016-09-24] MEDS ORDERED: fentaNYL CITRATE 250 MCG/5 ML AMP ONE (10:10)
[2016-09-24] MEDS ORDERED: ACETAMINOPHEN 1000 MG/100 ML VIAL IV ONE (10:10)
[2016-09-24] MEDS ORDERED: FAMOTIDINE 20 MG/2 ML VIAL ONE (10:10)
[2016-09-24] MEDS ORDERED: MIDAZOLAM HCL 2 MG/2 ML VIAL ONE (10:10)
--- NOTE | 2016-09-24 10:24 | PD.OP ---
cc: Abdiaziz Mcgregor MD Operative Report Date of Surgery: Sep 24, 2016 Preoperative Diagnosis: Comminuted left bicondylar tibial plateau fracture Postoperative Diagnosis: Procedure: Removal external fixation, open repair lateral meniscus tear, Open reduction internal fixation left bicondylar tibial plateau fracture Anesthesia: Gen. Surgeon: Abdiaziz Mcgregor Entry Level Project Engineer(s): EAMON De Leon PA-C The surgical procedure was assisted by my physician professional nursing assistant. My P.A. presence was necessary throughout this case for the manipulation and positioning of the surgical extremity. My P.A. was assisting me throughout the duration of this procedure. The skill set of a physician professional nursing assistant was medically necessary to complete this procedure. During the surgical case the large animal husbandry technician was working at the back table and the physician professional nursing assistant was directly assisting me. Operation and Findings: This patient was seen and evaluated preoperatively. Patient sustained an injury resulting a bicondylar right tibial plateau fracture. He initially underwent closed reduction and external fixation. Patient was evaluated on day of surgery and swelling had improved significantly. Soft tissue appeared to be ready for surgery. Informed consent was obtained preoperatively after detailed discussion of the risks and benefits of surgery. Risk of surgery including bleeding, infection, nonunion, painful hardware, stiffness, loss of motion, arthritis, need for knee replacement, as well as medical complications including blood clots, stroke, heart attack, and were discussed. I also discussed the possibility of using allograft bone graft . Preoperatively the operative site was marked. Patient was brought to the operating room and placed on the operating room table. Intravenous sedation and general endotracheal anesthesia were administered. IV antibiotics were given and a time out procedure was preformed. Procedure began with removal of the external fixator. Clamps were loosened. Bars and clamps were now removed. The pins were left in place. Next,the operative leg was prepped with alcohol followed by Hibiclens and draped in the usual sterile fashion. Attention was now turned towards the medial tibial plateau. A 6 inch incision was made over the posterior medial aspect of the tibial plateau. Saphenous vein was protected. The PES insertion was elevated to expose the posterior medial tibial plateau. Fracture was visualized. Attention was now turned toward reduction. Traction was applied. Fracture was manipulated. Fracture keyed in excellent alignment. A fracture tenaculum was used to compress fracture. K wires were used for provisional fixation. Fluoroscopy confirmed excellent alignment of fracture. A Synthes plate was now placed along the posterior medial tibial plateau. Plate was provisionally held to bone with K wires. Fluoroscopy confirmed plate placement. 3.5 cortical screws were used to compress plate to bone. Additional locking screws were placed proximally. Next a 6-inch curvilinear incision over the anterolateral knee. Subcutaneous tissue was treated with Bovie. Iliotibial band was split in line with fibers. A sub-meniscal arthrotomy was created and the lateral articular surface was visualized. At this point a large bucket-handle tear of the lateral meniscus was identified. Attention was now turned towards repair. The meniscus was reduced. 4 horizontal mattress sutures were placed to repair the tear. The meniscus was now stabilized. Next the joint surface was visualized. There was significant comminution and depression of the articular surface. A window was made in the metaphyseal region and bone tamps used to elevate the articular surface. Articular surface reduced into excellent alignment. K-wires were used for provisional fixation. At this point cancellous bone graft was packed under the articular surface using a bone tamp. The cortical fragments were now reduced. Fluoroscopy revealed excellent alignment of fracture. A Synthes proximal tibial plate was selected. The plate was provisionally held with K-wires. 3.5 cortical screws were used compress plate to bone distally, and a periarticular clamp was used to compress the medial and lateral tibial plateau fracture fragments together. Multiple locking screws were now placed proximally. Additional screws were placed in the shaft. K-wires were removed. Final fluoroscopy showed excellent alignment of fracture with well- placed hardware. The incision was thoroughly irrigated. Attention was now returned back to the medial plate. Additional locking screws were placed proximally within the plate. All screws were predrilled and premeasured for appropriate length. Incisions were thoroughly irrigated. Attention was now turned to closure. Fascia and iliotibial band were closed with #1 Vicryl,. Subcutaneous tissues closed with 3-0 Vicryl and skin was closed with milagro. Sterile dressings were applied. The patient was transferred to recovery in stable condition. Abdiaziz Mcgregor MD Sep 24, 2016 10:24
[2016-09-24] MEDS ORDERED: MISCELLANEOUS NURSING INFORMATION XX PRN (10:30)
[2016-09-24] MEDS ORDERED: MORPHINE SULFATE 4 MG/ML INJ IV PUSH PRN (10:30)
[2016-09-24] MEDS ORDERED: ACETAMINOPHEN/HYDROcodone 325 MG/10 MG TAB PO PRN (10:30)
[2016-09-24] MEDS ORDERED: Post-op Orders (for Pharmacy) MISC XX ONE (10:30)
[2016-09-24] MEDS ORDERED: NALOXONE HCL 0.4 MG/ML AMP IV PRN (10:30)
[2016-09-24] MEDS ORDERED: SODIUM CHLORIDE 0.9% FLUSH 5 ML FLUSH IVF PRN (10:30)
[2016-09-24] MEDS ORDERED: LACTATED RINGER'S 1000 ML INJ 1,000 ML IV ONE (11:10)
[2016-09-24] MEDS ORDERED: PROPOFOL 200 MG/20 ML AMP IV ONE (11:10)
[2016-09-24] MEDS ORDERED: PHENYLEPH/NS 1000 MCG/10 ML SYR IV ONE (11:10)
[2016-09-24] MEDS ORDERED: ONDANSETRON HCL 4 MG/2 ML VIAL IV PUSH ONE (11:10)
[2016-09-24] MEDS ORDERED: NEOSTIGMINE 3 MG/3 ML SYR IV ONE (11:10)
[2016-09-24] MEDS ORDERED: MORPHINE SULFATE 30 MG/30 ML PCA IV SCH (11:30)
[2016-09-24] MEDS: CALCIUM/VITAMIN D 250 MG/125 U TAB PO SCH ×2 (13:00→17:42)
[2016-09-24] MEDS ORDERED: ERGOCALCIFEROL (VIT D2) 50,000 UNIT CAP PO SCH (14:00)
[2016-09-24] MEDS: LACTATED RINGER'S 1000 ML INJ 1,000 ML IV SCH ×2 (14:00→23:37)
[2016-09-24] MEDS: PCA - TOTAL MG MORPHINE DELIVERED PER SHIFT SCH ×3 (14:00→23:38)
[2016-09-24] MEDS ORDERED: *morphine SULFATE 8 MG/ML PERIprocedure ONLY ONE (14:28)
[2016-09-24] MEDS: KETOROLAC TROMETHAMINE 30 MG/ML (IVP) VIAL IVP SCH ×2 (14:28→21:44)
--- NOTE | 2016-09-24 14:40 | RADRPT ---
EXAM DATE/TIME: 09/24/2016 12:39 [place] COMPARISON: KNEE LEFT LTD (1 OR 2VWS), September 16, 2016, 10:01. INDICATIONS : Post-op ORIF left tibial plateau fracture. MEDICAL HISTORY : None. SURGICAL HISTORY : None. ENCOUNTER: Subsequent ACUITY: 1 week PAIN SCORE: Non-responsive. LOCATION: Left knee. FINDINGS: Plate with screws is seen bridging the severely comminuted fracture of the tibia. Alignment is anato jose. CONCLUSION: Anatomic alignment. Kleber Alfaro MD FACR on September 24, 2016 at 14:05 Board Certified Radiologist. This report was verified electronically.
[2016-09-24] MEDS: LACTULOSE SYRUP 20 GM/30 ML CUP PO SCH (17:15)
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
[2016-09-24 17:25] VITALS: O2SAT 94
[2016-09-24] MEDS ORDERED: TAMSULOSIN HCL 0.4 MG CAP PO ONE (17:30)
[2016-09-24] MEDS: ceFAZolin 2 GM PREMIX 50 ML IV SCH (17:42)
[2016-09-24] MEDS ORDERED: ceFAZolin 2 GM PREMIX 50 ML IV SCH (18:00)
[2016-09-24 20:00] VITALS: BP 144/68; PULSE 105; RESP 16; TEMP 96.7; O2SAT 99
[2016-09-24] MEDS ORDERED: SODIUM CHLORIDE 0.9% FLUSH 5 ML FLUSH IVF SCH (21:00)
[2016-09-24] MEDS: VANCOMYCIN INJ 1,000 MG in SODIUM CHLOR 0.9% 250 ML INJ 250 ML IV SCH (21:44)
[2016-09-24] MEDS: ACETAMINOPHEN/HYDROcodone 325 MG/10 MG TAB PO PRN (21:44)
[2016-09-24] MEDS ORDERED: VANCOMYCIN INJ 1,000 MG in SODIUM CHLOR 0.9% 250 ML INJ 250 ML IV SCH (23:00)
[2016-09-25] VITALS (7 sets, daily range): BP systolic 116–154; BP diastolic 61–78; PULSE 99–107; RESP 16–21; TEMP 96.1–99; O2SAT 93–100
[2016-09-25] MEDS: ceFAZolin 2 GM PREMIX 50 ML IV SCH ×3 (02:29→17:57)
[2016-09-25] MEDS: ACETAMINOPHEN/HYDROcodone 325 MG/10 MG TAB PO PRN ×4 (04:07→21:34)
[2016-09-25] MEDS: KETOROLAC TROMETHAMINE 30 MG/ML (IVP) VIAL IVP SCH ×3 (05:28→21:30)
--- NOTE | 2016-09-25 06:36 | PD.ORT.PN ---
Subjective Subjective Remarks POD 1 s/p ORIF left tibial plateau doing well. pain controlled. mild soreness Objective Vitals Vital Signs Date Time Temp Pulse Resp B/P Pulse Ox O2 Delivery O2 Flow Rate FiO2 09/25/16 04:00 97.3 107 16 154/78 100 09/25/16 00:00 96.6 105 17 137/61 96 09/24/16 20:00 96.7 105 16 144/68 99 09/24/16 17:25 94 Nasal Cannula 3.00 09/24/16 14:14 108 17 177/89 93 Nasal Cannula 3 09/24/16 14:10 12 09/24/16 14:00 104 17 174/85 94 Nasal Cannula 3 09/24/16 13:45 114 17 180/87 95 Nasal Cannula 3 09/24/16 13:27 98.2 116 17 167/86 99 Simple Mask 6 09/24/16 08:00 96.1 100 18 132/63 93 I/O 09/24/16 09/24/16 09/24/16 09/25/16 09/25/16 09/25/16 07:00 15:00 23:00 07:00 15:00 23:00 Intake Total 0 ml 1750 ml 240 ml Output Total 1150 ml 610 ml 1100 ml 250 ml Balance -1150 ml 1140 ml -860 ml -250 ml Intake Oral 0 ml 240 ml IV Total 100 ml Other 1650 ml Output Urine Total 1150 ml 460 ml 1100 ml 250 ml Estimated Blood Loss 150 ml # Bowel Movements 0 0 Result Diagram: 09/22/16 0507 09/22/16 0507 Imaging Last 24 hours Impressions Chest X-Ray 09/17/16 0800 Signed Impressions: Service Date/Time: Saturday, September 17, 2016 08:58 - CONCLUSION: No evidence of pneumothorax. Left basilar density in part posterior fusion pneumothorax and possibly some mild lower lobe posterior basilar consolidation Brandon Fermin MD Objective Remarks LLE: dressings clean and dry. intact. +CKS. NVI Assessment & Plan Assessment and Plan 1) Left Tibial Plateau Fx s/p ORIF - POD 1 -NWB -maintain knee brace except of PT -PROM 0-90. no active leg lifts or quad sets -CM for HHC vs rehab -DVT prophylaxis -daily dressing changes POD 2 Ba Gomez Sep 25, 2016 06:36
[2016-09-25] MEDS ORDERED: HYDR-3366 PO (06:38)
[2016-09-25] MEDS ORDERED: VITA2000 PO (06:38)
[2016-09-25] MEDS ORDERED: XARE10TA PO (06:38)
[2016-09-25] MEDS ORDERED: CALCTAB19 PO (06:38)
[2016-09-25] MEDS ORDERED: ERGO1CAP30 PO (06:38)
[2016-09-25] MEDS ORDERED: WALKER/ADULT/FO1 MIS (06:38)
[2016-09-25 07:13] LABS: HEMATOCRIT 29.8 % (39.0-51.0); REVIEW FLAG FINAL
[2016-09-25] MEDS: FAMOTIDINE 20 MG TAB PO SCH ×2 (08:44→21:30)
[2016-09-25] MEDS: CYCLOBENZAPRINE HCL 10 MG TAB PO SCH ×3 (08:45→17:58)
[2016-09-25] MEDS: MULTIVITAMINS/MINERALS THERAPEUTIC TAB PO SCH (08:45)
[2016-09-25] MEDS: CHOLECALCIFEROL (VIT D3) 1000 UNIT TAB PO SCH (08:47)
[2016-09-25] MEDS: LACTULOSE SYRUP 20 GM/30 ML CUP PO SCH ×2 (08:48→09:00)
[2016-09-25] MEDS: DOCUSATE SODIUM 50 MG/SENNA 8.6 MG TAB PO SCH ×2 (08:48→21:30)
[2016-09-25] MEDS: TAMSULOSIN HCL 0.4 MG CAP PO SCH (08:48)
[2016-09-25] MEDS: CALCIUM/VITAMIN D 250 MG/125 U TAB PO SCH ×3 (08:48→17:58)
[2016-09-25] MEDS ORDERED: ERGOCALCIFEROL (VIT D2) 50,000 UNIT CAP PO SCH (09:00)
[2016-09-25] MEDS: VANCOMYCIN INJ 1,000 MG in SODIUM CHLOR 0.9% 250 ML INJ 250 ML IV SCH ×2 (10:25→21:30)
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
[2016-09-25] MEDS: SODIUM CHLORIDE 0.9% FLUSH 5 ML FLUSH IVF SCH ×2 (10:30→21:31)
[2016-09-25] MEDS: ENOXAPARIN SODIUM 30 MG/0.3 ML SYRINGE SQ SCH ×2 (12:41→23:20)
[2016-09-25] MEDS ORDERED: LACTULOSE SYRUP 20 GM/30 ML CUP PO ONE (12:45)
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
[2016-09-25] MEDS: PCA - TOTAL MG MORPHINE DELIVERED PER SHIFT SCH ×2 (14:00→21:27)
[2016-09-25] MEDS ORDERED: MAGNESIUM HYDROXIDE SUSP 30 ML CUP PO SCH (21:45)
[2016-09-26 00:30] VITALS: BP 149/68; PULSE 99; RESP 20; TEMP 97.6; O2SAT 94
[2016-09-26] MEDS: PCA - TOTAL MG MORPHINE DELIVERED PER SHIFT SCH ×2 (00:43→10:42)
[2016-09-26] MEDS: ceFAZolin 2 GM PREMIX 50 ML IV SCH ×2 (01:08→08:49)
[2016-09-26] MEDS ORDERED: BACITRACIN TOP OINT 15 GM TUBE TOP PRN (01:30)
[2016-09-26] MEDS: KETOROLAC TROMETHAMINE 30 MG/ML (IVP) VIAL IVP SCH (05:21)
[2016-09-26] MEDS: ACETAMINOPHEN/HYDROcodone 325 MG/10 MG TAB PO PRN ×3 (05:21→17:31)
--- NOTE | 2016-09-26 06:45 | PD.ORT.PN ---
Subjective Subjective Remarks POD 2 s/p ORIF left tibial plateau doing well. pain controlled. mild soreness. out of bed with walker Objective Vitals Vital Signs Date Time Temp Pulse Resp B/P Pulse Ox O2 Delivery O2 Flow Rate FiO2 09/26/16 00:30 97.6 99 20 149/68 94 09/25/16 20:22 96.1 105 21 116/68 93 09/25/16 19:44 96 21 09/25/16 14:03 96 09/25/16 12:00 96.9 99 18 153/73 97 09/25/16 11:24 16 09/25/16 08:00 99.0 99 16 139/69 99 I/O 09/25/16 09/25/16 09/25/16 09/26/16 09/26/16 09/26/16 07:00 15:00 23:00 07:00 15:00 23:00 Intake Total 440 ml 480 ml Output Total 250 ml 2650 ml 750 ml Balance -250 ml -2210 ml -270 ml Intake Oral 440 ml 480 ml Output Urine Total 250 ml 2650 ml 750 ml # Bowel Movements 0 Result Diagram: 09/25/16 0615 09/22/16 0507 Imaging Last 24 hours Impressions Chest X-Ray 09/17/16 0800 Signed Impressions: Service Date/Time: Saturday, September 17, 2016 08:58 - CONCLUSION: No evidence of pneumothorax. Left basilar density in part posterior fusion pneumothorax and possibly some mild lower lobe posterior basilar consolidation Brandon Fermin MD Objective Remarks LLE: dressings clean and dry. intact. +CKS. NVI Assessment & Plan Assessment and Plan 1) Left Tibial Plateau Fx s/p ORIF - POD 2 -NWB -maintain knee brace except of PT -PROM 0-90. no active leg lifts or quad sets - for [facility] -DVT prophylaxis -daily dressing changes -plan for home with [facility] tomorrow -f/u with [facility] or [facility]ONY in 2 weeks Ba Gomez Sep 26, 2016 06:45
--- NOTE | 2016-09-26 06:55 | HHI.FF ---
Face to Face Verification Diagnosis: (1) Closed left tibial fracture Physical Therapy Gait training Knee: Knee fracture, Protocol: Left, Non weight bearing Canvas Knee Splint: Remove only with PT Left LE Weight Bearing: Non WB, No Strengthening, No Quad Sets Left LE Range of Motion: Passive ROM (0-90 deg) Nursing Dressing Changes: Daily dressing change, Shun wrap, 4x4s, Xeroform I have seen patient Sahara Lord on 09/26/16. My clinical findings support the need for the requested home health care services because: Ltd mobility - disease progression I certify that my clinical findings support that this patient is homebound because: Post-op weakness Ba Gomez Sep 26, 2016 06:55
--- NOTE | 2016-09-26 07:43 | RADRPT ---
EXAM DATE/TIME: 09/26/2016 07:11 [place] COMPARISON: CHEST SINGLE AP, September 23, 2016, 5:36. INDICATIONS : Hemothorax. MEDICAL HISTORY : Myocardial infarction. SURGICAL HISTORY : Tonsillectomy. ENCOUNTER: Subsequent ACUITY: 2 weeks PAIN SCORE: 0/10 LOCATION: Bilateral chest FINDINGS: A single view of the chest demonstrates minimal left basilar density. Nodular density within the righ t lower lobe laterally, possibly scarring. Osseous structures are intact. CONCLUSION: 1. Left basilar density possibly atelectasis or infiltrate. 2. Normal nodular scarring right lower lobe. Kam Helton MD on September 26, 2016 at 7:40 Board Certified Radiologist. This report was verified electronically.
[2016-09-26 08:00] VITALS: BP 164/66; PULSE 109; RESP 18; TEMP 98.5; O2SAT 93
[2016-09-26] MEDS ORDERED: BISACODYL 10 MG SUPP RECTAL ONE (08:00)
[2016-09-26] MEDS ORDERED: BISACODYL EC 5 MG TABEC PO ONE (08:00)
[2016-09-26] MEDS: CHOLECALCIFEROL (VIT D3) 1000 UNIT TAB PO SCH (08:50)
[2016-09-26] MEDS: SODIUM CHLORIDE 0.9% FLUSH 5 ML FLUSH IVF SCH (08:50)
[2016-09-26] MEDS: CALCIUM/VITAMIN D 250 MG/125 U TAB PO SCH ×3 (08:51→17:30)
[2016-09-26] MEDS: MULTIVITAMINS/MINERALS THERAPEUTIC TAB PO SCH (08:51)
[2016-09-26] MEDS: DOCUSATE SODIUM 50 MG/SENNA 8.6 MG TAB PO SCH ×2 (08:51→20:55)
[2016-09-26] MEDS: CYCLOBENZAPRINE HCL 10 MG TAB PO SCH ×3 (08:51→17:30)
[2016-09-26] MEDS: TAMSULOSIN HCL 0.4 MG CAP PO SCH (08:51)
[2016-09-26] MEDS: FAMOTIDINE 20 MG TAB PO SCH ×2 (08:51→20:55)
[2016-09-26] MEDS: LACTULOSE SYRUP 20 GM/30 ML CUP PO SCH (08:52)
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
[2016-09-26 11:23] VITALS: O2SAT 95
[2016-09-26] MEDS: ENOXAPARIN SODIUM 30 MG/0.3 ML SYRINGE SQ SCH (11:31)
[2016-09-26 11:58] VITALS: BP 137/75; PULSE 106; RESP 18; TEMP 96.7; O2SAT 94
[2016-09-26] MEDS ORDERED: MISCELLANEOUS PHARMACY INFORMATION XX ONE (12:00)
[2016-09-26 20:32] VITALS: BP 148/72; PULSE 111; RESP 21; TEMP 96.7; O2SAT 95
[2016-09-26] MEDS ORDERED: MISC-289 (20:51)
[2016-09-26] MEDS ORDERED: SENN1TAB PO (20:51)
[2016-09-26] MEDS ORDERED: MILKSUS PO (20:51)
[2016-09-26] MEDS ORDERED: WHEEMIS3 (20:52)
[2016-09-26] MEDS ORDERED: MISC-163 (20:53)
[2016-09-27 00:35] VITALS: BP 146/76; PULSE 111; RESP 20; TEMP 96; O2SAT 93
[2016-09-27] MEDS: ACETAMINOPHEN/HYDROcodone 325 MG/10 MG TAB PO PRN ×3 (01:00→13:24)
[2016-09-27] MEDS: ENOXAPARIN SODIUM 30 MG/0.3 ML SYRINGE SQ SCH ×2 (01:01→13:24)
[2016-09-27 04:29] VITALS: BP 155/75; PULSE 100; RESP 20; TEMP 96.6; O2SAT 95
--- NOTE | 2016-09-27 06:41 | PD.ORT.PN ---
Subjective Subjective Remarks POD 3 s/p ORIF left tibial plateau doing well. pain controlled. mild soreness. out of bed with walker and more comfortable with ambulating today Objective Vitals Vital Signs Date Time Temp Pulse Resp B/P Pulse Ox O2 Delivery O2 Flow Rate FiO2 09/27/16 04:29 96.6 100 20 155/75 95 09/27/16 00:35 96.0 111 20 146/76 93 09/26/16 20:32 96.7 111 21 148/72 95 09/26/16 11:58 96.7 106 18 137/75 94 09/26/16 11:23 95 21 09/26/16 10:42 Room Air 09/26/16 08:58 Room Air 09/26/16 08:00 98.5 109 18 164/66 93 I/O 09/26/16 09/26/16 09/26/16 09/27/16 09/27/16 09/27/16 07:00 15:00 23:00 07:00 15:00 23:00 Intake Total 480 ml 1200 ml 480 ml Output Total 1525 ml 1850 ml Balance -1045 ml -650 ml 480 ml Intake Oral 480 ml 1200 ml 480 ml Output Urine Total 1525 ml 1850 ml # Voids 2 # Bowel Movements 0 1 1 Result Diagram: 09/25/16 0615 Imaging Last 24 hours Impressions Chest X-Ray 09/17/16 0800 Signed Impressions: Service Date/Time: Saturday, September 17, 2016 08:58 - CONCLUSION: No evidence of pneumothorax. Left basilar density in part posterior fusion pneumothorax and possibly some mild lower lobe posterior basilar consolidation Brandon Fermin MD Objective Remarks LLE: dressings clean and dry. intact. +CKS. NVI Assessment & Plan Assessment and Plan 1) Left Tibial Plateau Fx s/p ORIF - POD 3 -NWB -maintain knee brace except of PT -PROM 0-90. no active leg lifts or quad sets - for [facility] -DVT prophylaxis -daily dressing changes -plan for home with [facility] tomorrow -f/u with [facility] or [facility]ON[facility] in 2 weeks -ortho cleared for DC home today with [facility] Ba Gomez Sep 27, 2016 06:41
[2016-09-27 08:00] VITALS: BP 151/79; PULSE 97; RESP 18; TEMP 97.1; O2SAT 94
[2016-09-27] MEDS: DOCUSATE SODIUM 50 MG/SENNA 8.6 MG TAB PO SCH (09:00)
[2016-09-27] MEDS: LACTULOSE SYRUP 20 GM/30 ML CUP PO SCH (09:00)
[2016-09-27] MEDS: TAMSULOSIN HCL 0.4 MG CAP PO SCH (09:54)
[2016-09-27] MEDS: CALCIUM/VITAMIN D 250 MG/125 U TAB PO SCH ×2 (09:54→13:24)
[2016-09-27] MEDS: MULTIVITAMINS/MINERALS THERAPEUTIC TAB PO SCH (09:54)
[2016-09-27] MEDS: FAMOTIDINE 20 MG TAB PO SCH (09:54)
[2016-09-27] MEDS: CHOLECALCIFEROL (VIT D3) 1000 UNIT TAB PO SCH (09:54)
[2016-09-27] MEDS: CYCLOBENZAPRINE HCL 10 MG TAB PO SCH ×2 (09:54→13:24)
[2016-09-27] MEDS: SODIUM CHLORIDE 0.9% FLUSH 5 ML FLUSH IVF SCH (09:55)
[2016-09-27 14:24] VITALS: RESP 18
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
== END 2016-09-27 16:21 | disposition home health service (06) | DRG 488 ==
LOC: NEPC 20:32 → NEDA 23:43 → N06A 09-16 01:04
PROVIDERS: ADMIT Surgery; ATTEND Surgery
PROC: 0QSHXZZ Reposition Left Tibia, External Approach (ICD-10-PCS; 2016-09-15)
PROC: 0QSH35Z Reposition Left Tibia with External Fixation Device, Percutaneous Approach (ICD-10-PCS; principal; 2016-09-16 09:10)
PROC: 0SQD0ZZ Repair Left Knee Joint, Open Approach (ICD-10-PCS; 2016-09-24)
PROC: 0QSH04Z Reposition Left Tibia with Internal Fixation Device, Open Approach (ICD-10-PCS; 2016-09-24)
PROC: 0QUH0KZ Supplement Left Tibia with Nonautologous Tissue Substitute, Open Approach (ICD-10-PCS; 2016-09-24)
PROC: 0QPHX5Z Removal of External Fixation Device from Left Tibia, External Approach (ICD-10-PCS; 2016-09-24)
DX: S82.142A Displaced bicondylar fracture of left tibia, initial encounter for closed fracture (principal); S27.1XXA Traumatic hemothorax, initial encounter; S82.402A Unspecified fracture of shaft of left fibula, initial encounter for closed fracture; J90 Pleural effusion, not elsewhere classified; S22.42XA Multiple fractures of ribs, left side, initial encounter for closed fracture; J43.2 Centrilobular emphysema; J98.11 Atelectasis; S83.252A Bucket-handle tear of lateral meniscus, current injury, left knee, initial encounter; K21.0 Gastro-esophageal reflux disease with esophagitis; R33.8 Other retention of urine; R03.0 Elevated blood-pressure reading, without diagnosis of hypertension; I25.2 Old myocardial infarction; I25.10 Atherosclerotic heart disease of native coronary artery without angina pectoris; M54.30 Sciatica, unspecified side; V28.4XXA Motorcycle driver injured in noncollision transport accident in traffic accident, initial encounter; Y92.410 Unspecified street and highway as the place of occurrence of the external cause; Z87.891 Personal history of nicotine dependence
CPT/HCPCS: 27752; 70450; 71010; 71020; 71260; 72125; 73560; 73590; 73700; 74177; 76000; 76377; 80048; 80053; 81001; 82652; 83735; 85014; 85018; 85025; 85610; 85730; 86850; 86900; 86901; 93005; 94150; 94640; 94667; 94668; 96361; 96374; 96375; 99152; C1713; J0131; J0690; J1100; J1580; J1650; J1885; J2175; J2250; J2270; J2370; J2405; J2710; J3010; J3370; J7030; J7050; J7120; L1830; L8699; Q9967

== ENCOUNTER 2016-10-19 14:50 | Observation (INO) | payer OTHER ==
[~2016-10-19] VITALS: Ht 188 cm; Wt 100.0 kg
[~2016-10-19 14:50] MED LIST: CALCTAB19 PO; CYCL1TAB29 PO; ERGO1CAP30 PO; HYDR-3366 PO; MELO-1 PO; MILKSUS PO; MISC-163; MISC-289; SENN1TAB PO; VITA2000 PO; WALKER/ADULT/FO1 MIS; WHEEMIS3; XARE10TA PO
[2016-10-19 14:51] VITALS: BP 172/81; PULSE 117; RESP 20; TEMP 97.7; O2SAT 91
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
[2016-10-19 15:45] VITALS: BP 131/78; PULSE 110; RESP 20; O2SAT 94
[2016-10-19] MEDS ORDERED: SODIUM CHLORIDE 0.9% FLUSH 10 ML FLUSH IVF PRN ×2 (15:45→17:15)
[2016-10-19] MEDS ORDERED: NEXI20CA PO (16:00)
--- NOTE | 2016-10-19 16:13 | RADRPT ---
EXAM DATE/TIME: 10/19/2016 15:38 [facility] COMPARISON: CHEST SINGLE AP, September 26, 2016, 7:11. INDICATIONS : Short of Breath. MEDICAL HISTORY : Chronic obstructive pulmonary disease. Emphysema. Myocardial infarction. SURGICAL HISTORY : Tonsillectomy. ENCOUNTER: Initial ACUITY: 1 day PAIN SCORE: 0/10 LOCATION: Bilateral chest FINDINGS: Bibasilar atelectasis is noted. The heart is stable. The pulmonary vascular pattern is normal. CONCLUSION: Bibasilar atelectasis. Chris Forrest MD on October 19, 2016 at 16:06 Board Certified Radiologist. This report was verified electronically.
[2016-10-19 16:15] LABS: AUTOMATED NEUTROPHIL # 9.2 TH/MM3 (1.8-7.7); BASOPHIL # 0.1 TH/MM3 (0-0.2); BASOPHIL % 0.5 % (0.0-2.0); EOSINOPHIL # 0.1 TH/MM3 (0-0.4); EOSINOPHIL % 1.2 % (0.0-4.0); HEMATOCRIT 36.4 % (39.0-51.0); HEMO FLAGS DIFF FINAL; LYMPH % 11.5 % (9.0-44.0); LYMPHOCYTE # 1.4 TH/MM3 (1.0-4.8); MEAN CORPUSCULAR HGB CONC 32.6 % (32.0-36.0); MONO % 8.9 % (0.0-8.0); NEUT % 77.9 % (16.0-70.0); PLATELET COUNT 257 TH/MM3 (150-450); RED BLOOD COUNT 4.39 MIL/MM3 (4.50-5.90); RED CELL DISTRIBUTION WIDTH 15.4 % (11.6-17.2); WHITE BLOOD COUNT 11.8 TH/MM3 (4.0-11.0)
[2016-10-19 16:18] LABS: ANION GAP 8 MEQ/L (5-15); AST (GOT) 17 U/L (15-37); BICARBONATE 30.7 MEQ/L (21.0-32.0); BLOOD UREA NITROGEN 13 MG/DL (7-18); CHLORIDE 96 MEQ/L (98-107); GLOMERULAR FILTRATION RATE 91 ML/MIN (>89); POTASSIUM 4.1 MEQ/L (3.5-5.1); SODIUM (NA) 135 MEQ/L (136-145)
[2016-10-19 16:23] LABS: ALKALINE PHOSPHATASE 128 U/L (45-117); ALT (GPT) 29 U/L (12-78); TOTAL BILIRUBIN ADULT 0.4 MG/DL (0.2-1.0)
[2016-10-19] MEDS ORDERED: IOHEXOL 350 MG/ML 10 ML VIAL (for RAD DIAG) IV ONE (16:46)
--- NOTE | 2016-10-19 16:58 | RADRPT ---
EXAM DATE/TIME: 10/19/2016 16:31 [facility] COMPARISON: CHEST SINGLE AP, October 19, 2016, 15:38. INDICATIONS : Shortness of breath and chest pain post surgery. IV CONTRAST: 75 cc Omnipaque 350 (iohexol) IV RADIATION DOSE: 23.36 CTDIvol (mGy) MEDICAL HISTORY : Chronic obstructive pulmonary disease. Pneumothorax. SURGICAL HISTORY : None. ENCOUNTER: Initial ACUITY: 1 day PAIN SCALE: 5/10 LOCATION: chest TECHNIQUE: Volumetric scanning of the chest was performed using a pulmonary embolism protocol MIP images were re constructed. Using automated exposure control and adjustment of the mA and/or kV according to patien t size, radiation dose was kept as low as reasonably achievable to obtain optimal diagnostic quality images. FINDINGS: PULMONARY ARTERIES: No filling defects are seen in the pulmonary arteries through the segmental level. LUNGS: Few scattered parenchymal cysts in the right middle lobe and right lung base. Linear airspace disease above the left hemidiaphragm probably represents some atelectasis. There is a more confluent airspac e process in the right base which also represent atelectasis or an early infiltrate. PLEURAE: Scattered subpleural blebs characteristic of emphysema. There is some pleural thickening and regional calcification in both lung apices. MEDIASTINUM: There is good visualization of the great vessels of the middle mediastinum. No evidence of mediastin al or hilar adenopathy/mass. MUSCULOSKELETAL: Multiple, healing left posterior rib fractures. MISCELLANEOUS: The visualized upper abdominal organs demonstrate no acute abnormality. CONCLUSION: 1. There appears to be linear atelectatic changes above the left hemidiaphragm. Possibly early pneumo olu infiltrate versus atelectasis in the right base. 2. Scattered subpleural blebs characteristic of emphysema. There are parenchymal cysts in the right m iddle and lower lobe. 3. No pulmonary embolus. 4. Multiple healing left posterior rib fractures. Mich Foss MD on October 19, 2016 at 16:52 Board Certified Radiologist. This report was verified electronically.
[2016-10-19] MEDS: RESP: ALBUTEROL 2.5 MG/IPRATROPIUM 0.5 MG NEB (SCH) INH ×2 (17:15→17:16)
[2016-10-19] MEDS ORDERED: methylPREDNISolone SOD SUCC 125 MG/2 ML VIAL IV PUSH ONE (17:15)
[2016-10-19 18:00] VITALS: PULSE 109; RESP 22; O2SAT 97
[2016-10-19] MEDS ORDERED: ENOXAPARIN SODIUM 100 MG/ML SYRINGE SQ ONE (18:45)
[2016-10-19 19:00] VITALS: BP 150/70; PULSE 114; RESP 24; O2SAT 96
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
[2016-10-19] MEDS ORDERED: SODIUM CHLORIDE 0.9% FLUSH 10 ML FLUSH IV FLUSH PRN (20:30)
[2016-10-19] MEDS ORDERED: BISACODYL 10 MG SUPP PR PRN (20:30)
[2016-10-19] MEDS ORDERED: ACETAMINOPHEN 325 MG TAB PO PRN (20:30)
[2016-10-19] MEDS ORDERED: NALOXONE HCL 0.4 MG/ML AMP IV PRN (20:30)
[2016-10-19] MEDS: ACETAMINOPHEN/HYDROcodone 325 MG/10 MG TAB PO PRN (20:35)
[2016-10-19 20:36] VITALS: BP 144/64
[2016-10-19] MEDS: SODIUM CHLORIDE 0.9% FLUSH 10 ML FLUSH IV FLUSH SCH (21:00)
[2016-10-19] MEDS ORDERED: cefTRIAXone INJ 1,000 MG in SODIUM CHLORIDE 0.9% INJ 100 ML IV SCH (21:00)
[2016-10-19] MEDS ORDERED: NON-FORMULARY DRUG (Calcium Carbonate-Vitamin D (Calcium 600+D 200) 1 TAB) PO SCH (21:00)
[2016-10-19] MEDS: CALCIUM/VITAMIN D 250 MG/125 U TAB PO SCH (21:00)
[2016-10-19 21:30] VITALS: BP 146/80; PULSE 101; RESP 18; TEMP 97.8; O2SAT 98
[2016-10-20] VITALS (10 sets, daily range): BP systolic 129–159; BP diastolic 69–85; PULSE 95–112; RESP 16–22; TEMP 95.6–96.6; O2SAT 94–97
[2016-10-20] MEDS: methylPREDNISolone SOD SUCC 40 MG/1 ML VIAL IV PUSH SCH ×3 (02:56→17:17)
[2016-10-20 05:00] LABS: BASOPHIL % 0.3 % (0.0-2.0); HEMATOCRIT 34.9 % (39.0-51.0); HEMO FLAGS DIFF FINAL; LYMPH % 8.1 % (9.0-44.0); LYMPHOCYTE # 0.9 TH/MM3 (1.0-4.8); MEAN CELL VOLUME 83.3 FL (80.0-100.0); MEAN CORPUSCULAR HEMOGLOBIN 27.2 PG (27.0-34.0); MEAN CORPUSCULAR HGB CONC 32.6 % (32.0-36.0); MONO % 5.5 % (0.0-8.0); NEUT % 86.1 % (16.0-70.0); PLATELET COUNT 237 TH/MM3 (150-450); RED BLOOD COUNT 4.18 MIL/MM3 (4.50-5.90); RED CELL DISTRIBUTION WIDTH 15.1 % (11.6-17.2); WHITE BLOOD COUNT 11.6 TH/MM3 (4.0-11.0)
[2016-10-20 05:34] LABS: BICARBONATE 28.3 MEQ/L (21.0-32.0); POTASSIUM 4.6 MEQ/L (3.5-5.1)
[2016-10-20] MEDS: ACETAMINOPHEN/HYDROcodone 325 MG/10 MG TAB PO PRN ×4 (07:50→23:39)
[2016-10-20] MEDS: CHOLECALCIFEROL (VIT D3) 1000 UNIT TAB PO SCH (07:51)
[2016-10-20] MEDS: CYCLOBENZAPRINE HCL 10 MG TAB PO SCH ×3 (07:51→17:17)
[2016-10-20] MEDS: CALCIUM/VITAMIN D 250 MG/125 U TAB PO SCH ×2 (07:51→19:27)
[2016-10-20] MEDS: SODIUM CHLORIDE 0.9% FLUSH 10 ML FLUSH IV FLUSH SCH ×2 (07:52→19:29)
[2016-10-20] MEDS ORDERED: ENOXAPARIN SODIUM 80 MG/0.8 ML SYRINGE SQ SCH (08:00)
[2016-10-20] MEDS: RESP: ALBUTEROL 2.5 MG/IPRATROPIUM 0.5 MG NEB (SCH) NEB ×3 (09:58→21:44)
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
[2016-10-20] MEDS ORDERED: LEVOFLOXACIN 500 MG TAB PO ONE (12:00)
--- NOTE | 2016-10-20 13:23 | RADRPT ---
EXAM DATE/TIME: 10/20/2016 12:10 [facility] COMPARISON: CT PULMONARY ANGIOGRAM, October 19, 2016, 16:31. INDICATIONS : Shortness of breath for 2 days. DOSE: 8.1 mCi Tc99m MAA IV 1.2 mCi Tc99m DTPA aerosol MEDICAL HISTORY : Hypertension. Myocardial infarction. Chronic obstructive pulmonary disease. SURGICAL HISTORY : None. ENCOUNTER: Initial ACUITY: 2 days PAIN SCALE: 3/10 LOCATION: Bilateral chest TECHNIQUE: Following five minutes of tidal breathing of DTPA aerosol, planar images of the lungs were performed in eight projections. The patient was then injected with MAA, and eight-view perfusion scan was perf ormed. FINDINGS: There is a homogeneous pattern of aerosol delivery to the periphery of both lungs. No focal ventilat ory defects are seen. The perfusion lung scan demonstrates multiple segmental areas of perfusion mismatch involving the ant erior aspect of the right lower lobe, left lower lobe and right posterior aspect of the lower lobe. CONCLUSION: Multiple large segmental perfusion defects involving the bilateral lung bases consistent with acute p ulmonary embolus. Kate Epstein MD on October 20, 2016 at 13:17 Board Certified Radiologist. This report was verified electronically.
--- NOTE | 2016-10-20 17:23 | EKG ---
Date Performed: 10/20/2016 Time Performed: 01:44:36 PTAGE: 61 years EKG: Sinus tachycardia. Possible anteroseptal infarct - age undetermined Lateral ST-T changes ar e nonspecific Compared to previous tracing, there has been a loss of R wave in V3, this is most likel y due to lead placement, but cannot be certain of an interval anteroseptal infarct Abnormal ECG NO PREVIOUS TRACING DOCTOR: Cedric Mclain Interpretating Date/Time 10/20/2016 17:21:48
--- NOTE | 2016-10-20 22:45 | RADRPT ---
EXAM DATE/TIME: 10/20/2016 20:28 [facility] COMPARISON: No previous studies available for comparison. INDICATIONS : Bilateral leg pain. MEDICAL HISTORY : Chronic obstructive pulmonary disease. Myocardial infarction. Hypertension. Anticoagulant therapy, Xa relto. Skin cancer. SURGICAL HISTORY : Tonsillectomy. Left tibial fracture repair. Left leg reconstruction post trauma. ENCOUNTER: Initial ACUITY: 1 day PAIN SCORE: 6/10 LOCATION: Bilateral legs. TECHNIQUE: Venous ultrasound of the left and right leg was performed from the inguinal ligament to the proximal calf. Real-time, color Doppler and spectral tracing, compression and augmentation techniques were us ed. FINDINGS: RIGHT LEG: There is normal compressibility of the deep venous system from the inguinal region to the proximal ca lf. No echogenic clot is seen in the lumen of the common femoral, femoral, popliteal, and posterior tibial veins. There is a normal response of the venous system to proximal and distal augmentation an d respiration. LEFT LEG: There is normal compressibility of the deep venous system from the inguinal region to the proximal ca lf. No echogenic clot is seen in the lumen of the common femoral, femoral, popliteal, and posterior tibial veins. There is a normal response of the venous system to proximal and distal augmentation an d respiration. CONCLUSION: Normal examination. Juan Whitney MD on October 20, 2016 at 22:44 Board Certified Radiologist. This report was verified electronically.
[2016-10-21] VITALS (9 sets, daily range): BP systolic 141–161; BP diastolic 68–81; PULSE 90–118; RESP 16–19; TEMP 95.4–97; O2SAT 96–99
[2016-10-21] MEDS: methylPREDNISolone SOD SUCC 40 MG/1 ML VIAL IV PUSH SCH ×3 (02:00→21:00)
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
[2016-10-21] MEDS: RESP: ALBUTEROL 2.5 MG/IPRATROPIUM 0.5 MG NEB (SCH) NEB ×3 (07:27→19:40)
[2016-10-21] MEDS: ENOXAPARIN SODIUM 40 MG/0.4 ML SYRINGE SQ SCH (08:43)
[2016-10-21] MEDS: CALCIUM/VITAMIN D 250 MG/125 U TAB PO SCH ×2 (08:44→21:00)
[2016-10-21] MEDS: CHOLECALCIFEROL (VIT D3) 1000 UNIT TAB PO SCH (08:44)
[2016-10-21] MEDS: CYCLOBENZAPRINE HCL 10 MG TAB PO SCH ×3 (08:44→18:22)
[2016-10-21] MEDS: SODIUM CHLORIDE 0.9% FLUSH 10 ML FLUSH IV FLUSH SCH ×2 (08:44→21:00)
[2016-10-21] MEDS: ACETAMINOPHEN/HYDROcodone 325 MG/10 MG TAB PO PRN ×4 (08:51→23:56)
[2016-10-21] MEDS: LEVOFLOXACIN 500 MG TAB PO SCH (10:47)
--- NOTE | 2016-10-21 14:00 | HHI.PR ---
Subjective Remarks pt right side pleurisy improving. off oxygen Objective Vitals heart reg lung few right basilar crackles abd s/nt ext left leg immobilizer Vital Signs Date Time Temp Pulse Resp B/P Pulse Ox O2 Delivery O2 Flow Rate FiO2 10/21/16 13:24 99 10/21/16 12:00 95.4 105 19 156/81 99 10/21/16 08:00 95.9 98 19 159/79 98 10/21/16 07:29 97 Nasal Cannula 21 10/21/16 04:00 97.0 118 16 161/74 97 10/21/16 00:00 96.0 116 16 141/68 97 10/20/16 21:47 94 Nasal Cannula 10/20/16 20:00 96.6 104 22 159/82 95 10/20/16 19:26 111 10/20/16 16:00 96.3 95 16 151/70 97 10/20/16 10/20/16 10/21/16 15:00 23:00 07:00 Intake Total 840 ml 780 ml 480 ml Balance 840 ml 780 ml 480 ml Intake Oral 840 ml 780 ml 480 ml # Voids 3 1 2 # Bowel Movements 0 2 Result Diagram: 10/20/16 0319 10/20/16 0319 Imaging Last 24 hours Impressions Chest X-Ray 10/19/16 1534 Signed Impressions: Service Date/Time: Wednesday, October 19, 2016 15:38 - CONCLUSION: Bibasilar atelectasis. Chris Forrest MD CT Angiography 10/19/16 0000 Signed Impressions: Service Date/Time: Wednesday, October 19, 2016 16:31 - CONCLUSION: 1. There appears to be linear atelectatic changes above the left hemidiaphragm. Possibly early pneumonic infiltrate versus atelectasis in the right base. 2. Scattered subpleural blebs characteristic of emphysema. There are parenchymal cysts in the right middle and lower lobe. 3. No pulmonary embolus. 4. Multiple healing left posterior rib fractures. Mich Foss MD A/P Problem List: (1) Pneumonia Status: Acute Plan: Pt with recent tibia plateau fx/rib fx's Presents with right chest pleurisy Pt has emphesema and apparent pneumonic processes in right lung with some atelectasis. no pulmonary embolism on cta and no dvt on u/s ..but the vq was positive. pulmonary consulted d/c rx dose lovenox cont abx cont nebs and solumedrol inc spirometer PT and oob. dvt prophylaxis outpt pft. long discussion with pt. my plan would be if stable then d/c home tomorrow with abx, prednisone taper, incentive spirometer, nebs...and at this time no anticoagulation unless pt symptoms worsened or recommended by pulmonary...if so then 6months would seem reasonable as this would have been provoked. (2) Pleuritic pain Status: Acute Plan: as above (3) Hypoxia Status: Acute Plan: continue oxygen (4) Emphysema, unspecified Status: Acute Plan: continue nebulizer and steroids Luis Alberto Morales MD Oct 21, 2016 14:00
--- NOTE | 2016-10-21 15:21 | HHI.PR ---
Subjective Remarks He is not SOB and is off o2 . Had a V/Q scan of lung which reads acute pulmonary embolus. Objective Vital Signs Date Time Temp Pulse Resp B/P Pulse Ox O2 Delivery O2 Flow Rate FiO2 10/21/16 13:24 99 10/21/16 12:00 95.4 105 19 156/81 99 10/21/16 08:00 95.9 98 19 159/79 98 10/21/16 07:29 97 Nasal Cannula 21 10/21/16 04:00 97.0 118 16 161/74 97 10/21/16 00:00 96.0 116 16 141/68 97 10/20/16 21:47 94 Nasal Cannula 10/20/16 20:00 96.6 104 22 159/82 95 10/20/16 19:26 111 10/20/16 16:00 96.3 95 16 151/70 97 I/O 10/20/16 10/20/16 10/20/16 10/21/16 10/21/16 10/21/16 07:00 15:00 23:00 07:00 15:00 23:00 Intake Total 480 ml 840 ml 780 ml 480 ml Balance 480 ml 840 ml 780 ml 480 ml Intake Oral 480 ml 840 ml 780 ml 480 ml # Voids 2 3 1 2 # Bowel Movements 0 0 2 Result Diagram: 10/20/1631810/20/16318 Objective Remarks This thinly built middle-aged man is alert, no acute distress. No pallor, icterus, no lymphadenopathy. HEENT: Head normocephalic. Pupils reactive. Tongue moist. Throat is clear. Neck: Supple. No bruits or thyroid enlargement. Chest: Distant breath sounds with expiratory wheezes, bilaterally prolonged expirations. Heart: The heart sounds regular S1-S2. No murmur. No S3. Abdomen: Soft, protuberant. No organomegaly. Bowel sounds are active. Extremities: Left leg is in a brace and dressing. Peripheral pulses are well felt. There is no calf tenderness on either side. Homans' sign is negative. Neurologic: Reflexes are 1+ with no gross motor deficit. Assessment and Plan Assessment and Plan IMPRESSION 5. Dyspnea, etiology to be determined. 6. Rule out pulmonary embolism. 7. Chronic obstructive pulmonary disease with chronic bronchitis. 8. History of lower extremity fractures. Plan : 1. Will need to get a Rpt CTA chest to clarify finding on V/Q scan . I discussed the scans with Dr WISDOM the radiologist and he recommends a Rpt CTA chest . 2. Will continue antibiotics. 3. O2 prn 2 L 4. Cont Lovenox 40 mg S/Q daily. 5. Is at bedside q3h. 6. Continue nebs qid , Duoneb. 7. Taper solumedrol to 40 mg bid. Rico Elmore MD Oct 21, 2016 15:21
[2016-10-22] VITALS (7 sets, daily range): BP systolic 132–162; BP diastolic 69–79; PULSE 90–109; RESP 16–17; TEMP 96–98.6; O2SAT 95–100
[2016-10-22] MEDS: RESP: ALBUTEROL 2.5 MG/IPRATROPIUM 0.5 MG NEB (SCH) NEB ×3 (07:34→20:00)
[2016-10-22] MEDS: methylPREDNISolone SOD SUCC 40 MG/1 ML VIAL IV PUSH SCH ×2 (08:26→20:49)
[2016-10-22] MEDS: CALCIUM/VITAMIN D 250 MG/125 U TAB PO SCH ×2 (08:26→20:48)
[2016-10-22] MEDS: CYCLOBENZAPRINE HCL 10 MG TAB PO SCH ×3 (08:26→18:17)
[2016-10-22] MEDS: CHOLECALCIFEROL (VIT D3) 1000 UNIT TAB PO SCH (08:26)
[2016-10-22] MEDS: ENOXAPARIN SODIUM 40 MG/0.4 ML SYRINGE SQ SCH (08:26)
[2016-10-22] MEDS: SODIUM CHLORIDE 0.9% FLUSH 10 ML FLUSH IV FLUSH SCH ×2 (08:26→20:48)
[2016-10-22] MEDS: ACETAMINOPHEN/HYDROcodone 325 MG/10 MG TAB PO PRN ×4 (08:39→23:11)
--- NOTE | 2016-10-22 10:03 | PD.PN.STU ---
Subjective Remarks Feeling well, no complaints. On NC O2 at 2L sats 96. at beside with patient. Objective Vitals Vital Signs Date Time Temp Pulse Resp B/P Pulse Ox O2 Delivery O2 Flow Rate FiO2 10/22/16 08:00 96.0 90 16 139/79 100 10/22/16 07:35 96 Nasal Cannula 21 10/22/16 04:00 96.1 102 17 141/69 97 10/22/16 00:56 18 10/22/16 00:00 97.0 100 16 150/69 95 10/21/16 20:00 96.1 90 17 149/71 96 10/21/16 19:40 98 10/21/16 16:00 96.7 111 18 150/75 97 10/21/16 13:24 99 10/21/16 12:00 95.4 105 19 156/81 99 I/O 10/21/16 10/21/16 10/21/16 10/22/16 10/22/16 10/22/16 07:00 15:00 23:00 07:00 15:00 23:00 Intake Total 480 ml 1200 ml 240 ml 240 ml Balance 480 ml 1200 ml 240 ml 240 ml Intake Oral 480 ml 1200 ml 240 ml 240 ml # Voids 2 2 1 1 # Bowel Movements 2 2 0 1 Result Diagram: 10/20/1631810/20/16318 Objective Remarks This thinly built middle-aged man is alert, no acute distress. No pallor, icterus, no lymphadenopathy. HEENT: Head normocephalic. Pupils reactive. Tongue moist. Throat is clear. Neck: Supple. No bruits or thyroid enlargement. Chest: Distant breath sounds with no wheezes. bilaterally prolonged expirations. Heart: The heart sounds regular S1-S2. No murmur. No S3. Abdomen: Soft, protuberant. No organomegaly. Bowel sounds are active. Extremities: Left leg is in a brace and dressing. Peripheral pulses are well felt. There is no calf tenderness on either side. Homans' sign is negative. Neurologic: no gross motor deficit. A/P Assessment and Plan IMPRESSION 5. Dyspnea, etiology to be determined. 6. Rule out pulmonary embolism with repeat CTA 7. Chronic obstructive pulmonary disease with chronic bronchitis. 8. History of lower extremity fractures. Plan : 1. Will need to get a Rpt CTA chest to clarify finding on V/Q scan . I discussed the scans with Dr WISDOM the radiologist and he recommends a Rpt CTA chest . 2. Will continue antibiotics. 3. O2 prn 2 L 4. Cont Lovenox 40 mg S/Q daily. 5. Is at bedside q3h. 6. Continue nebs qid , Duoneb. 7. Continue solumedrol to 40 mg bid. Monse Denson M3 Oct 22, 2016 10:03
[2016-10-22] MEDS: LEVOFLOXACIN 500 MG TAB PO SCH (10:46)
--- NOTE | 2016-10-22 14:14 | HHI.PR ---
Subjective Remarks Pt is feeling much better from admission. Pt denies chest pain. Pt denies pain with deep breath. Objective Vitals Vital Signs Date Time Temp Pulse Resp B/P Pulse Ox O2 Delivery O2 Flow Rate FiO2 10/22/16 12:48 98.6 103 16 162/79 96 10/22/16 08:00 96.0 90 16 139/79 100 10/22/16 07:35 96 Nasal Cannula 21 10/22/16 04:00 96.1 102 17 141/69 97 10/22/16 00:56 18 10/22/16 00:00 97.0 100 16 150/69 95 10/21/16 20:00 96.1 90 17 149/71 96 10/21/16 19:40 98 10/21/16 16:00 96.7 111 18 150/75 97 10/21/16 10/21/16 10/22/16 15:00 23:00 07:00 Intake Total 1200 ml 240 ml 240 ml Balance 1200 ml 240 ml 240 ml Intake Oral 1200 ml 240 ml 240 ml # Voids 2 1 1 # Bowel Movements 2 0 1 Result Diagram: 10/20/16 0319 10/20/16 0319 Imaging Last Impressions Lung Scan-VQ Nuclear Medicine 10/20/16 0600 Signed Impressions: Service Date/Time: Thursday, October 20, 2016 12:10 - CONCLUSION: Multiple large segmental perfusion defects involving the bilateral lung bases consistent with acute pulmonary embolus. Kate Epstein MD Lower Extremity Ultrasound 10/20/16 0000 Signed Impressions: Service Date/Time: Thursday, October 20, 2016 20:28 - CONCLUSION: Normal examination. Juan Whitney MD Chest X-Ray 10/19/16 1534 Signed Impressions: Service Date/Time: Wednesday, October 19, 2016 15:38 - CONCLUSION: Bibasilar atelectasis. Chris Forrest MD CT Angiography 10/19/16 0000 Signed Impressions: Service Date/Time: Wednesday, October 19, 2016 16:31 - CONCLUSION: 1. There appears to be linear atelectatic changes above the left hemidiaphragm. Possibly early pneumonic infiltrate versus atelectasis in the right base. 2. Scattered subpleural blebs characteristic of emphysema. There are parenchymal cysts in the right middle and lower lobe. 3. No pulmonary embolus. 4. Multiple healing left posterior rib fractures. Mich Foss MD A/P Problem List: (1) Pneumonia Status: Acute Plan: Pt with recent tibia plateau fx/rib fx's Presents with right chest pleurisy Pt has emphesema and apparent pneumonic processes in right lung with some atelectasis. no pulmonary embolism on cta and no dvt on u/s ..but the vq was positive. pulmonary consulted d/c rx dose lovenox cont abx cont nebs and solumedrol inc spirometer PT and oob. dvt prophylaxis outpt pft. long discussion with pt. my plan would be if stable then d/c home tomorrow with abx, prednisone taper, incentive spirometer, nebs...and at this time no anticoagulation unless pt symptoms worsened or recommended by pulmonary...if so then 6months would seem reasonable as this would have been provoked. 10/22/16 - awaiting CTA chest - awaiting PFTs - if CTA chest negative then will d/c to home (2) Pleuritic pain Status: Acute Plan: as above (3) Hypoxia Status: Resolved Plan: - resolved (4) Emphysema, unspecified Status: Acute Plan: continue nebulizer and steroids Michele Sims DO Oct 22, 2016 14:14
[2016-10-22] MEDS ORDERED: IOHEXOL 350 MG/ML 10 ML VIAL (for RAD DIAG) IV ONE (16:15)
--- NOTE | 2016-10-22 16:26 | RADRPT ---
EXAM DATE/TIME: 10/22/2016 15:55 [facility] COMPARISON: CT PULMONARY ANGIOGRAM, October 19, 2016, 16:31. INDICATIONS : Evaluate for pulmonary embolism. IV CONTRAST: 60 cc Omnipaque 350 (iohexol) IV RADIATION DOSE: 11.3 CTDIvol (mGy) MEDICAL HISTORY : Hypertension. Skin cancer SURGICAL HISTORY : Tonsillectomy. ENCOUNTER: Subsequent ACUITY: 1 day PAIN SCALE: 0/10 LOCATION: Bilateral chest TECHNIQUE: Volumetric scanning of the chest was performed using a pulmonary embolism protocol MIP images were reconstructed. Using automated exposure control and adjustment of the mA and/or kV acco rding to patient size, radiation dose was kept as low as reasonably achievable to obtain optimal diag nostic quality images. FINDINGS: There is no evidence for central pulmonary emboli. Old rib fractures are noted on the left. There is no pericardial effusion. There are no suspicious lung lesions identified. There is some pleural thickening in the apex of the right upper lobe. CONCLUSION: 1. Negative for central pulmonary emboli. 2. Pleural thickening posteriorly right upper lobe. 3. Old rib fractures on the left. Kleber Alfaro MD FACR on October 22, 2016 at 16:21 Board Certified Radiologist. This report was verified electronically.
[2016-10-22] MEDS: PANTOPRAZOLE SOD 20 MG DELAYED RELEASE TAB PO SCH (18:17)
--- NOTE | 2016-10-22 18:54 | HHI.PR ---
Subjective Remarks He is not SOB and is off o2 . Had a V/Q scan of lung which reads acute pulmonary embolus. CTA was done again and shows no PE. PFT is WNL Objective Vital Signs Date Time Temp Pulse Resp B/P Pulse Ox O2 Delivery O2 Flow Rate FiO2 10/22/16 16:00 109 16 132/69 97 10/22/16 12:48 98.6 103 16 162/79 96 10/22/16 08:00 96.0 90 16 139/79 100 10/22/16 07:35 96 Nasal Cannula 21 10/22/16 04:00 96.1 102 17 141/69 97 10/22/16 00:56 18 10/22/16 00:00 97.0 100 16 150/69 95 10/21/16 20:00 96.1 90 17 149/71 96 10/21/16 19:40 98 I/O 10/21/16 10/21/16 10/21/16 10/22/16 10/22/16 10/22/16 07:00 15:00 23:00 07:00 15:00 23:00 Intake Total 480 ml 1200 ml 240 ml 240 ml 1220 ml Balance 480 ml 1200 ml 240 ml 240 ml 1220 ml Intake Oral 480 ml 1200 ml 240 ml 240 ml 1220 ml # Voids 2 2 1 1 5 # Bowel Movements 2 2 0 1 0 Result Diagram: 10/20/1631810/20/16318 Objective Remarks This thinly built middle-aged man is alert, no acute distress. No pallor, icterus, no lymphadenopathy. HEENT: Head normocephalic. Pupils reactive. Tongue moist. Throat is clear. Neck: Supple. No bruits or thyroid enlargement. Chest: Distant breath sounds with expiratory wheezes, bilaterally. Heart: The heart sounds regular S1-S2. No murmur. No S3. Abdomen: Soft, protuberant. No organomegaly. Bowel sounds are active. Extremities: Left leg is in a brace and dressing. Peripheral pulses are well felt. There is no calf tenderness on either side. Homans' sign is negative. Neurologic: Reflexes are 1+ with no gross motor deficit. Assessment and Plan Assessment and Plan IMPRESSION 5. Dyspnea, etiology to be determined. 6. Rule out pulmonary embolism. 7. Chronic obstructive pulmonary disease with chronic bronchitis. 8. History of lower extremity fractures. Plan : 1. CTA done and is Negative for PE. 2. Will continue antibiotics for 5 days. 3. D/C O2 4. Cont Lovenox 40 mg S/Q daily. 5. Is at bedside q3h. 6. Continue nebs qid , Duoneb. 7. D/C solumedrol 8. Prednisone 10 mg bid 9. Home per Dr Sims. Rico Elmore MD Oct 22, 2016 18:54
[2016-10-23] VITALS: BP 165/79; PULSE 99; RESP 16; TEMP 97.4; O2SAT 94
[2016-10-23] MEDS: ACETAMINOPHEN/HYDROcodone 325 MG/10 MG TAB PO PRN ×3 (05:03→14:32)
[2016-10-23 08:02] VITALS: BP 155/87; PULSE 90; RESP 16; TEMP 95.6; O2SAT 98
[2016-10-23] MEDS: ENOXAPARIN SODIUM 40 MG/0.4 ML SYRINGE SQ SCH (08:54)
[2016-10-23] MEDS: CHOLECALCIFEROL (VIT D3) 1000 UNIT TAB PO SCH (08:54)
[2016-10-23] MEDS: PANTOPRAZOLE SOD 20 MG DELAYED RELEASE TAB PO SCH (08:54)
[2016-10-23] MEDS: CYCLOBENZAPRINE HCL 10 MG TAB PO SCH ×2 (08:54→14:32)
[2016-10-23] MEDS: CALCIUM/VITAMIN D 250 MG/125 U TAB PO SCH (08:54)
[2016-10-23] MEDS: methylPREDNISolone SOD SUCC 40 MG/1 ML VIAL IV PUSH SCH (08:55)
[2016-10-23] MEDS: SODIUM CHLORIDE 0.9% FLUSH 10 ML FLUSH IV FLUSH SCH (09:00)
[2016-10-23] MEDS: RESP: ALBUTEROL 2.5 MG/IPRATROPIUM 0.5 MG NEB (SCH) NEB ×2 (10:12→13:45)
[2016-10-23 10:15] VITALS: O2SAT 99
[2016-10-23] MEDS: LEVOFLOXACIN 500 MG TAB PO SCH (10:52)
[2016-10-23 12:02] VITALS: BP 150/89; PULSE 101; RESP 18; TEMP 98.1; O2SAT 96
--- NOTE | 2016-10-23 12:04 | HHI.PR ---
Subjective Remarks He is not SOB and is off o2 . Had a V/Q scan of lung which reads acute pulmonary embolus. CTA was done again and shows no PE. PFT is WNL Objective Vital Signs Date Time Temp Pulse Resp B/P Pulse Ox O2 Delivery O2 Flow Rate FiO2 10/23/16 10:15 99 21 10/23/16 08:02 95.6 90 16 155/87 98 10/23/16 07:20 Room Air 2.00 10/23/16 00:00 97.4 99 16 165/79 94 10/22/16 20:00 96.9 105 17 153/77 98 10/22/16 19:03 Room Air 10/22/16 16:00 109 16 132/69 97 10/22/16 12:48 98.6 103 16 162/79 96 I/O 10/22/16 10/22/16 10/22/16 10/23/16 10/23/16 10/23/16 07:00 15:00 23:00 07:00 15:00 23:00 Intake Total 240 ml 1220 ml 360 ml 240 ml Balance 240 ml 1220 ml 360 ml 240 ml Intake Oral 240 ml 1220 ml 360 ml 240 ml # Voids 1 5 2 1 # Bowel Movements 1 0 0 0 Result Diagram: 10/20/1631810/20/16318 Objective Remarks This thinly built middle-aged man is alert, no acute distress. No pallor, icterus, no lymphadenopathy. HEENT: Head normocephalic. Pupils reactive. Tongue moist. Throat is clear. Neck: Supple. No bruits or thyroid enlargement. Chest: Distant breath sounds with no wheeze. Heart: The heart sounds regular S1-S2. No murmur. No S3. Abdomen: Soft, protuberant. No organomegaly. Bowel sounds are active. Extremities: Left leg is in a brace and dressing. Peripheral pulses are well felt. There is no calf tenderness on either side. Homans' sign is negative. Neurologic: Reflexes are 1+ with no gross motor deficit. Assessment and Plan Assessment and Plan IMPRESSION 5. Dyspnea, etiology to be determined. 6. Rule out pulmonary embolism. 7. Chronic obstructive pulmonary disease with chronic bronchitis. 8. History of lower extremity fractures. Plan : 1. OK to go home 2. Will continue antibiotics for 5 days. 3. Add Ventolin HFA , 2puffs tid prn 4.D/C Lovenox 40 mg S/Q daily. 5. Is at bedside q3h. 6. D/C nebs 7. Prednisone 10 mg bid X 3 days Rico Elmore MD Oct 23, 2016 12:04
[2016-10-23] MEDS ORDERED: PRED20 PO (13:22)
[2016-10-23] MEDS ORDERED: ALBU0.08 NEB (13:22)
[2016-10-23] MEDS ORDERED: LEVA500T PO (13:22)
[2016-10-23] MEDS ORDERED: VENTAER INH (13:22)
[2016-10-23] MEDS ORDERED: IPRA0.02 NEB (13:22)
[2016-10-23] MEDS ORDERED: NEBULIZER1 MI1 (13:23)
--- NOTE | 2016-10-23 13:29 | HHI.DCPOC ---
Discharge Care Plan Diagnosis: (1) Pleuritic pain (2) Shortness of breath (3) Pneumonia (4) Hypoxia (5) Emphysema, unspecified Goals to Promote Your Health * To prevent worsening of your condition and complications * To maintain your health at the optimal level Directions to Meet Your Goals Take your medications as prescribed Follow your dietary instruction Follow activity as directed Keep your appointments as scheduled Take your immunizations and boosters as scheduled If your symptoms worsen call your PCP, if no PCP go to Urgent Care Center or Emergency Room Smoking is Dangerous to Your Health. Avoid second hand smoke Call the 24-hour hour crisis hotline for domestic abuse at Michele Sims DO Oct 23, 2016 13:29
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
--- NOTE | 2016-11-26 09:46 | RSPPFT ---
DATE OF PROCEDURE: 10/22/16 COMMENTS: Spirometry shows FEV1 of 3.3 at 80% of predicted, FVC at 4.6 at 90%, FEF 25-75 at 55% of predicted. Post-bronchodilator study demonstrated no significant change. Lung volumes were not completed. Flow volume loops appear unremarkable. IMPRESSION: 1. Early small airways obstruction. 2. No significant change following use of bronchodilator.
== END 2016-10-23 15:09 | disposition home or self-care (01) ==
LOC: NEPC 14:50 → NEDA 18:15 → INTOOBSV 18:15 → N06A 20:42
PROVIDERS: ADMIT Hospitalist; ATTEND Hospitalist
DX: J44.0 Chronic obstructive pulmonary disease with (acute) lower respiratory infection (principal); J44.1 Chronic obstructive pulmonary disease with (acute) exacerbation; J18.9 Pneumonia, unspecified organism; R07.81 Pleurodynia; I25.10 Atherosclerotic heart disease of native coronary artery without angina pectoris; I25.2 Old myocardial infarction; I10 Essential (primary) hypertension; K21.9 Gastro-esophageal reflux disease without esophagitis; Z87.891 Personal history of nicotine dependence; Z85.828 Personal history of other malignant neoplasm of skin; Z87.81 Personal history of (healed) traumatic fracture
CPT/HCPCS: 71010; 71275; 78582; 80048; 80053; 83880; 84484; 85025; 85379; 93005; 93970; 94060; 94150; 94640; 94664; 96374; 97110; 97116; 97163; 97530; 99285; A9540; A9567; J0696; J1650; J2920; J2930; Q9967; G0378